=== PATIENT | male | born 1930 | race Caucasian/White ===

== ENCOUNTER 2017-05-24 18:26 | Emergency (ER) | payer OTHER, MEDICARE ==
[~2017-05-24] VITALS: Ht 180.3 cm; Wt 79.4 kg
[~2017-05-24 18:26] MED LIST: ACETAMINOPHEN325 M1 PO; ASPIRIN EC81 M1 PO; ASPIRIN325 PO; CALCIUM CITRAT1 EAC9 PO; CARVEDILOL6.25 MG PO; CENTRUM SILVER1 EAC1 PO; CIPROFLOXACIN500 M1 PO; COLACE100 MG PO; FISH OIL 1,0001 EAC5; FLAGYL500 MG PO; LAXATIVE5 M1 PO; LISINOPRIL10 MG PO; LUTEIN20 MG PO; MOM PO; MORPHINE SULFAT15 M5 PO; NORCO 10-325 T1 EACH PO; ORAMORPH PO; PEPCID AC20 M1; PLAVIX 75 MG TA75 M1 PO; PRESERVISION A1 EAC1 PO; PRESERVISION A1 EAC2 PO; PRILOSEC 20 MG20 MG PO; SYNTHROID175 MCG; SYNTHROID175 MCG PO; SYNTHROID200 MCG PO; TESTIM5 GM TRANSDERM; VITAMIN B-12500 MCG PO; VITAMIN D1000 UNI1 PO; VITAMIN D32000 UNI1 PO; VITAMIN E1000 UNI3 PO; VITAMIN E400 UNIT PO; VITCB500GO PO; ZOFRAN4 MG PO
[2017-05-24] MEDS ORDERED: PEPCID20 MG PO (19:14)
[2017-05-24 19:26] LABS: ABSOLUTE NEUTROPHILS 7.1 thou/uL (1.4-8.2); BASOPHILS 0.5 % (0.0-2.0); EOSINOPHILS 1.4 % (0.0-3.0); HEMATOCRIT 47.8 % (42.0-52.0); HEMOGLOBIN 16.4 gm/dL (14.0-18.0); LYMPHOCYTES 21.1 % (24.0-44.0); MCH 30.8 pg (26.0-34.0); MCHC 34.4 g/dL (28.0-37.0); MCV 89.4 fL (80.0-100.0); MONOCYTES 9.8 % (1.0-8.0); PLATELET COUNT 173 thou/uL (150-400); POLYS 67.2 % (36.0-66.0); RBC 5.34 mil/uL (4.50-6.00); WBC 10.5 thou/uL (4.0-11.0)
[2017-05-24 19:28] LABS: MANUAL DIFF NO
[2017-05-24 19:42] LABS: CALCIUM 9.9 mg/dL (8.5-10.1); CREATININE 1.5 mg/dL (0.7-1.3); POTASSIUM 4.4 mmol/L (3.5-5.1)
[2017-05-24 19:46] LABS: ALBUMIN 4.1 g/dL (3.4-5.0); DIRECT BILIRUBIN 0.2 mg/dL (<0.1-0.3); TOTAL BILIRUBIN 0.9 mg/dL (<0.1-1.0); TOTAL PROTEIN 7.6 g/dL (6.4-8.2)
[2017-05-24 21:10] LABS: URINE BILIRUBIN NEGATIVE (Negative); URINE BLOOD 3+ (Negative); URINE COLOR YELLOW; URINE GLUCOSE-RANDOM* NEGATIVE (Negative); URINE KETONES NEGATIVE (Negative); URINE NITRITE NEGATIVE (Negative); URINE PROTEIN (DIPSTICK) NEGATIVE (Negative); URINE SPECIFIC GRAVITY 1.015 (1.003-1.035); URINE UROBILINOGEN 0.2 E.U./dl (0.2-1.0)
[2017-05-24 21:19] LABS: BACTERIA 1-9 Few /HPF (None Seen); CASTS None Seen /LPF (None Seen); CRYSTALS None Seen /LPF (None Seen); SQUAMOUS 0-3 Few /LPF (0-3); URINE RBC >20 Many /HPF (0-2); URINE WBC None Seen /HPF (0-5)
[2017-05-24 21:50] VITALS: BP 137/57
== END 2017-05-24 21:52 | disposition home or self-care (01) ==
LOC: ER 18:26
PROVIDERS: Emergency Medicine
DX: R33.9 Retention of urine, unspecified (principal); K21.9 Gastro-esophageal reflux disease without esophagitis; E78.00 Pure hypercholesterolemia, unspecified; F10.99 Alcohol use, unspecified with unspecified alcohol-induced disorder; Z90.49 Acquired absence of other specified parts of digestive tract; E03.9 Hypothyroidism, unspecified; M19.90 Unspecified osteoarthritis, unspecified site; Z95.1 Presence of aortocoronary bypass graft; Z98.890 Other specified postprocedural states; Z95.5 Presence of coronary angioplasty implant and graft; Z79.82 Long term (current) use of aspirin

== ENCOUNTER 2017-12-17 12:23 | Inpatient (IN) | payer OTHER, MEDICARE ==
[~2017-12-17] VITALS: Ht 182.9 cm; Wt 79.4 kg
--- NOTE | ~2017-12-17 | EKG ---
[place] [address] [place] [address] ELECTROCARDIOGRAM REPORT Name: ROMAN REYNOLDS Room #: 209-P DIS IN M.R.#: [id number] Admission: 12/17/17 Attend Phys: Leroy Wilks MD Discharge: 12/19/17 Date of : 32 Report #: [id number] THIS REPORT FOR: //name// [facility] Test Date: 2017-12-18 Test Time: 06:00:36 Pat Name: ROMAN REYNOLDS Department: Room: 209 P Gender: M Paper Sealer: IVANNA : 1930 Requested By: Chris Johnston Order Number: [id number] MD: Forerst Quinones Measurements Intervals [place] Rate: 90 P: 46 MT: 164 QRS: -52 QRSD: 129 T: 37 QT: 392 QTc: 480 Interpretive Statements Sinus rhythm Nonspecific IVCD with LAD Inferior infarct, old Compared to ECG 11/17/2013 07:28:04 No significant change was found Electronically Signed On 12-20-2017 7:25:11 TURNING MACHINE OPERATOR HELPER by Forrest Quinones [email or web address] <ELECTRONICALLY SIGNED> By: Forrest Quinones MD, [facility] [phone] Forrest Quinones MD, [facility] /EPI
--- NOTE | ~2017-12-17 | 2DMMODE ---
[facility] [address] [place] [address] 2 D/M-MODE ECHOCARDIOGRAM Name: ROMAN REYNOLDS Room #: 209-P ADM IN M.R.#: [id number] Admission: 12/17/17 Attend Phys: Leroy Wilks, Discharge: Date of : 32 Date of Service: 12/18/17 1239 Report #: [id number] THIS REPORT FOR: //name// APPROVED REPORT Study performed: 12/18/2017 07:48:10 EXAM: Comprehensive 2D, Doppler, and color-flow Echocardiogram Patient Location: Bedside Room #: 209 Status: routine BSA: 2.04 HR: 85 bpm BP: 125/73 mmHg Other Information Study Quality: Adequate Indications CAD Chest Pain 2D Dimensions RVDd: 29.01 mm LVEF(%): 40.58 (>50%) IVSd: 12.65 (7-11mm) LVOT Diam: 23.73 (18-24mm) LVDd: 57.82 mm PWd: 12.30 (7-11mm) Ascending Ao: 37.25 (22-36mm) LVDs: 46.19 (25-40mm) Aortic Root: 35.03 mm IVC: 27.00 mm Bernabe's LVEF: 40.58 % Volumes Left Atrial Volume (Systole) Single Plane 4CH: 56.76 mL Single Plane 2CH: 67.50 mL LA ESV Index: 35.00 mL/m2 Aortic Valve AoV Peak Prabhu.: 2.31 m/s AO Peak Gr.: 14.13 mmHg LVOT Max P.24 mmHg AO Mean Gr.: 10.41 mmHg LVOT Mean P.21 mmHg AO V2 Mean: 1.47 m/s LVOT Max V: 0.81 m/s AO V2 VTI: 40.57 cm LVOT Mean V: 0.48 m/s TYRA (VTI): 1.79 cm2 LVOT V1 VTI: 16.38 cm TYRA Vmax: 1.55 cm2 AI Vmax: 3.96 m/s SV (LVOT): 72.43 mL [facility] [place] [address] 2 D/M-MODE ECHOCARDIOGRAM Name: ROMAN REYNOLDS Room #: 209-P [facility] IN M.R.#: [id number] Admission: 12/17/17 Attend Phys: Leroy Wilks, Discharge: Date of : 32 Date of Service: 12/18/17 1239 Report #: [id number] Elbert: 3.01 m/s2 AI PHT: 382.34 ms Mitral Valve E/A Ratio: 0.4 MV Decel. Time: 170.90 ms MV E Max Prabhu.: 0.46 m/s MV A Prabhu.: 1.19 m/s MV PHT: 49.56 ms IVRT: 173.01 ms Pulmonary Valve PV Peak Prabhu.: 0.80 m/s PV Peak Gr.: 2.55 mmHg Tricuspid Valve TR Peak Prabhu.: 2.34 m/s RAP Estimate: 10.00 mmHg TR Peak Gr.: 21.90 mmHg PA Pressure: 32.00 mmHg Left Ventricle Left ventricle is mildly dilated. There is normal left ventricular wall thickness. Left ventricular systolic function is mildly decreased. LVEF is 40%. Mild diastolic dysfunction is present (impaired relaxation pattern). Right Ventricle The right ventricle is normal size. Right ventricle is hypokinetic. Atria Left atrium is mildly dilated. The right atrium size is normal. Aortic Valve The Aortic valve is calcified. Mild to moderate aortic regurgitation. There is mild valvular aortic stenosis. Calculated aortic valve area is 1.8 cm2 with maximum pressure gradient of 21 mmHg and mean pressure gradient of 10 mmHg. Mitral Valve Moderate mitral annular calcification. Moderate mitral regurgitation. No evidence of mitral valve stenosis. Tricuspid Valve The tricuspid valve is normal in structure. Trace to mild tricuspid regurgitation. PAP is estimated at [address] [place] [address] 2 D/M-MODE ECHOCARDIOGRAM Name: ROMAN REYNOLDS Room #: 209-P ADM IN M.R.#: [id number] Admission: 12/17/17 Attend Phys: Leroy Wilks, Discharge: Date of : 32 Date of Service: 12/18/17 1239 Report #: [id number] Pulmonic Valve Pulmonic valve is not well visualized. Mild pulmonic regurgitation. Great Vessels The aortic root is normal in size. IVC is dilated and collapses >50% with inspiration. Pericardium There is no pericardial effusion. <Conclusion> Left ventricle is mildly dilated. Left ventricular systolic function is mildly decreased. LVEF is 40-45% Mild diastolic dysfunction is present (impaired relaxation pattern). The right ventricle is normal size. Right ventricle is hypokinetic. Left atrium is mildly dilated. The Aortic valve is calcified. Mild to moderate aortic regurgitation. There is mild valvular aortic stenosis. Calculated aortic valve area is 1.8 cm2 with maximum pressure gradient of 21 mmHg and mean pressure gradient of 10 mmHg. Moderate mitral regurgitation. Trace to mild tricuspid regurgitation. PAP is estimated at 31 mmHg. The aortic root is normal in size. IVC is dilated and collapses >50% with inspiration. There is no pericardial effusion. <ELECTRONICALLY SIGNED> By: Chris Johnston MD, FACC 12/18/17 1239 1239 1239 Chris Johnston MD, FACC /INF
--- NOTE | ~2017-12-17 | EKG ---
[place] [address] [place] [address] ELECTROCARDIOGRAM REPORT Name: ERIK REYNOLDSY Room #: 209-P DIS IN M.R.#: [id number] Admission: 12/17/17 Attend Phys: Leroy Wilks MD Discharge: 12/19/17 Date of : 32 Report #: [id number] THIS REPORT FOR: //name// [facility] ED Test Date: 2017-12-17 Test Time: 13:03:01 Pat Name: ROMAN REYNOLDS Department: Room: 209 Gender: M Peoplesoft Analyst: MITA : 1930 Requested By: Tiago Lee Order Number: [id number] MD: Forrest Quinones Measurements Intervals [place] Rate: 95 P: 54 MD: 161 QRS: -49 QRSD: 128 T: 50 QT: 381 QTc: 479 Interpretive Statements Sinus rhythm Probable left atrial enlargement Nonspecific IVCD with LAD Compared to ECG 11/17/2013 07:28:04 No significant change was found Electronically Signed On 12-20-2017 7:14:17 AGRICULTURAL RESEARCH TECHNICIAN by Forrest Quinones [email or web address] <ELECTRONICALLY SIGNED> By: Forrest Quinones MD, [facility] 12/20/17 0714 1303 1303 Forrest Quinones MD, [facility] /EPI
--- NOTE | ~2017-12-17 | HC ---
[facility] [place] [address] CONSULTATION Name: ROMAN REYNOLDS Room #: 209-P [facility] IN M.R.#: [id number] Admission: 12/17/17 Attend Phys: Leroy Wilks MD Discharge: 12/19/17 Date of : 32 Report #: [id number] THIS REPORT FOR: //name// CC: Leroy Wilks DATE OF SERVICE: 12/17/2017 HISTORY OF PRESENT ILLNESS: The patient is an 87-year-old male who we have not seen. He has been seen by Cardiology since his bypass in 1995, down at [facility]. He has had no recent visits or stress testing. He presents to Emergency Room with a 2-day history of fever, weakness, cough, congestion. He had a swab that was negative for the influenza, but admitted and placed on ceftriaxone. He denies any real significant chest pain, but then he admits to some nocturnal chest discomfort for the last week or so. His troponin was trivially elevated and certainly not diagnostic for an ischemic event at 0.16. EKG has some nonspecific changes. I do not have an old one for comparison. Intraventricular conduction delay is noted. He denies any prior infarcts, but had a remote bypass in 1995. He takes minimal medications currently, Prilosec, aspirin, Synthroid and a laxative. No longer on any statin or hypertensive medication, he states. He is pain free and comfortable currently, he states. LABORATORY DATA: White count was 9000. H and H are 15 and 45, platelets 174. UA was unremarkable. Potassium 4.1, creatinine 1.2. BNP 3293. Troponin 0.16. There will be a repeat in the morning. PAST MEDICAL HISTORY: Positive for coronary artery disease; some previous hypertension; he has post-polio syndrome with generalized weakness; he has had cardiac stents since the bypass, but cannot remember when; inguinal hernia repair; EGD with gastric ulcers; hypothyroidism; DJD; reflux; hypercholesterolemia; PSA elevation without prostate cancer; history of remote GI bleed and epidural injections 5 years ago. SOCIAL HISTORY: He is , 2 children. 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 FAMILY HISTORY: Father had bypass surgery early around age 60. REVIEW OF SYSTEMS: Negative except for some occasional nocturia and hesitancy and as stated above. PHYSICAL EXAMINATION: GENERAL: He is pleasant, alert. He does have some vision deficit. He is voicing no complaints. He feels less short of breath than when he was admitted. VITAL SIGNS: Blood pressure 124/74, pulse 80 regular. HEENT: Eyes reveal xanthelasmas. There is arcus senilis. Pharynx is clear. NECK: Shows preserved upstrokes without JVD or bruits. [facility] [address] [place] [address] CONSULTATION Name: ROMAN REYNOLDS Room #: 209-P DIS IN M.R.#: [id number] Admission: 12/17/17 Attend Phys: Leroy Wilks MD Discharge: 12/19/17 Date of : 32 Report #: [id number] LUNGS: Clear. There are few coarse sounds and slight diminished in the right base. Few crackles. CARDIOVASCULAR: Regular rate and rhythm, S1, S2 distant, a significant murmur or gallop. ABDOMEN: Soft. No HSM, abdominal bruit. EXTREMITIES: Reveal trace edema. Distal pulses diminished, but intact. NEUROLOGIC: Nonfocal. SKIN: Warm and dry without xanthoma or ulcer. MUSCULOSKELETAL: Generalized arthritic changes. I did not ambulate him. ASSESSMENT: 1. Chest pain, shortness of breath. It appears to be a right middle lobe infiltrate/bronchitis pneumonia. 2. Elevated troponin of 0.16 is not clinically significant for an ischemic event in the setting and his age. 3. History of hypertension. 4. History of hypercholesterolemia. 5. Benign prostatic hypertrophy. RECOMMENDATIONS AND PLAN: Obviously, I do agree with IV antibiotics. I will repeat a troponin, EKG in the morning. May check an echo Doppler just to assess where we are with LV function, although I do not see any overt heart failure here. The only concern is a nocturnal chest discomfort, which has been occurring for the last week or two. He is still hospitalized, would consider nuclear stress testing, possibly Wednesday a.m. Seems to be very viable and alert and independent, not looking for, barring significant abnormality on the stress test, pharmacological Lexiscan, I would not proceed with any intervention. He is in the CCU. Thank you for asking me to assist in the care of this patient. <ELECTRONICALLY SIGNED> By: Chris Johnston MD, FACC 01/03/18 1427 21 2259 Chris Johnston MD, FACC /nt
[~2017-12-17 12:23] MED LIST changes: +PEPCID20 MG PO
[2017-12-17 12:26] VITALS: BP 114/65
[2017-12-17 13:12] LABS: ABSOLUTE NEUTROPHILS 6.9 thou/uL (1.4-8.2); BASOPHILS 0.3 % (0.0-2.0); EOSINOPHILS 0.7 % (0.0-3.0); HEMOGLOBIN 15.4 gm/dL (14.0-18.0); LYMPHOCYTES 14.8 % (24.0-44.0); MCH 30.9 pg (26.0-34.0); MCHC 34.1 g/dL (28.0-37.0); MCV 90.5 fL (80.0-100.0); MONOCYTES 7.3 % (1.0-8.0); PLATELET COUNT 174 thou/uL (150-400); POLYS 76.9 % (36.0-66.0); RBC 4.98 mil/uL (4.50-6.00); RDW 13.8 % (10.5-14.5)
[2017-12-17] MEDS ORDERED: OCUVITE EYE +1 EACH PO (13:16)
[2017-12-17 13:31] LABS: CALCIUM 9.3 mg/dL (8.5-10.1); CREATININE 1.2 mg/dL (0.7-1.3); POTASSIUM 4.1 mmol/L (3.5-5.1)
[2017-12-17 13:36] LABS: ALBUMIN 3.5 g/dL (3.4-5.0); TOTAL PROTEIN 7.1 g/dL (6.4-8.2); TROPONIN-I 0.16 ng/mL (<0.06)
[2017-12-17 13:54] LABS: URINE BILIRUBIN NEGATIVE (Negative); URINE BLOOD TRACE (Negative); URINE CLARITY CLEAR; URINE COLOR YELLOW; URINE GLUCOSE-RANDOM* NEGATIVE (Negative); URINE KETONES NEGATIVE (Negative); URINE LEUKOCYTES 3+ (Negative); URINE NITRITE NEGATIVE (Negative); URINE PROTEIN (DIPSTICK) NEGATIVE (Negative); URINE UROBILINOGEN 0.2 E.U./dl (0.2-1.0)
[2017-12-17 14:03] LABS: SQUAMOUS None Seen /LPF (0-3); URINE RBC 0-2 Rare /HPF (0-2); URINE WBC >25 Many /HPF (0-5)
[2017-12-17 14:04] LABS: CASTS None Seen /LPF (None Seen); CRYSTALS None Seen /LPF (None Seen); YEAST Present (None Seen)
[2017-12-17 14:31] VITALS: BP 126/68
[2017-12-17 14:47] VITALS: BP 129/70
[2017-12-17 15:12] VITALS: BP 122/79
[2017-12-17 19:26] VITALS: BP 125/73
[2017-12-18 06:45] LABS: HEMATOCRIT 43.1 % (42.0-52.0); HEMOGLOBIN 14.9 gm/dL (14.0-18.0); MCH 30.8 pg (26.0-34.0); MCHC 34.5 g/dL (28.0-37.0); MCV 89.3 fL (80.0-100.0); RBC 4.83 mil/uL (4.50-6.00); WBC 7.7 thou/uL (4.0-11.0)
[2017-12-18 06:56] LABS: CALCIUM 8.6 mg/dL (8.5-10.1); POTASSIUM 3.9 mmol/L (3.5-5.1)
[2017-12-18 07:33] LABS: CHOLESTEROL 145 mg/dL (<200); HDL CHOLESTEROL 54 mg/dL (>40); LDL CHOLESTEROL 81 mg/dL (<100); TC:HDL 2.7 Ratio (Not establshd); TRIGLYCERIDE 54 mg/dL (<150); VLDL 11 mg/dL (<40)
[2017-12-18 08:00] VITALS: BP 146/81
[2017-12-18 11:16] VITALS: BP 111/71
[2017-12-18 15:52] VITALS: BP 138/78
[2017-12-18 20:22] VITALS: BP 128/84
[2017-12-19 05:30] VITALS: BP 134/91
[2017-12-19] MEDS ORDERED: CEFDINIR300 MG PO (08:01)
[2017-12-19 11:09] VITALS: BP 134/91
== END 2017-12-19 12:00 | disposition home or self-care (01) | DRG 194 ==
LOC: ER 12:23 → EROBS 13:45 → 2N 14:48
PROVIDERS: Family Medicine; Physician Assistant
DX: J18.9 Pneumonia, unspecified organism (principal); N39.0 Urinary tract infection, site not specified; E78.00 Pure hypercholesterolemia, unspecified; K21.9 Gastro-esophageal reflux disease without esophagitis; E03.9 Hypothyroidism, unspecified; M19.90 Unspecified osteoarthritis, unspecified site; N40.0 Benign prostatic hyperplasia without lower urinary tract symptoms; J40 Bronchitis, not specified as acute or chronic; I25.10 Atherosclerotic heart disease of native coronary artery without angina pectoris; E78.5 Hyperlipidemia, unspecified; I10 Essential (primary) hypertension; Z87.891 Personal history of nicotine dependence; Z95.1 Presence of aortocoronary bypass graft; Z95.5 Presence of coronary angioplasty implant and graft; Z86.12 Personal history of poliomyelitis; Z90.49 Acquired absence of other specified parts of digestive tract; Z79.82 Long term (current) use of aspirin; Z79.899 Other long term (current) drug therapy
CPT/HCPCS: 10194

== ENCOUNTER → 2017-12-23 | Outpatient (CLI) | payer OTHER, MEDICARE ==
[~2017-12-23] MED LIST changes: +CEFDINIR300 MG PO; +OCUVITE EYE +1 EACH PO
== END ==
LOC: RAD 12:46
DX: J18.9 Pneumonia, unspecified organism (principal)

== ENCOUNTER 2019-07-11 08:51 | Inpatient (IN) | payer OTHER, MEDICARE ==
[~2019-07-11] VITALS: Ht 188 cm; Wt 81.6 kg
[2019-07-11 08:54] VITALS: BP 100/67
[2019-07-11 09:13] LABS: ABSOLUTE NEUTROPHILS 6.9 thou/uL (1.4-8.2); BASOPHILS 0.6 % (0.0-2.0); EOSINOPHILS 1.2 % (0.0-3.0); HEMATOCRIT 43.1 % (42.0-52.0); HEMOGLOBIN 14.4 gm/dL (14.0-18.0); LYMPHOCYTES 14.9 % (24.0-44.0); MCH 30.2 pg (26.0-34.0); MCHC 33.5 g/dL (28.0-37.0); MCV 90.3 fL (80.0-100.0); MONOCYTES 9.7 % (1.0-8.0); PLATELET COUNT 198 thou/uL (150-400); POLYS 73.6 % (36.0-66.0); RBC 4.77 mil/uL (4.50-6.00); RDW 14.5 % (10.5-14.5); WBC 9.4 thou/uL (4.0-11.0)
--- NOTE | 2019-07-11 09:25 | EKG ---
[address] [place] [address] ELECTROCARDIOGRAM REPORT Name: ROMAN REYNOLDS Room #: PRE M.RCarolynn#: [id number] Admission: Attend Phys: Discharge: Date of : 32 Report #: [id number] THIS REPORT FOR: //name// [facility] ED Test Date: 2019-07-11 Test Time: 08:54:12 Pat Name: ROMAN REYNOLDS Department: Room: Gender: M Billet Bed Operator: cw : 1930 Requested By: Fabiano King Order Number: [id number] MD: Philipp Smith Measurements Intervals [place] Rate: 129 P: CT: QRS: -91 QRSD: 153 T: 72 QT: 394 QTc: 578 Interpretive Statements Wide complex tachycardia. Electronically Signed On 07-11-2019 9:24:59 CDT by Philipp Smith [email or web address] <ELECTRONICALLY SIGNED> By: Philipp Smith MD 07/11/19 0924 0854 0854 Philipp Smith MD /EPI
[2019-07-11 09:26] LABS: CALCIUM 9.9 mg/dL (8.5-10.1); CREATININE 1.3 mg/dL (0.7-1.3); POTASSIUM 4.6 mmol/L (3.5-5.1)
[2019-07-11 09:36] LABS: ALBUMIN 3.4 g/dL (3.4-5.0); TROPONIN-I 0.12 ng/mL (<0.06)
[2019-07-11 10:05] VITALS: BP 97/67
[2019-07-11 11:08] VITALS: BP 99/66
[2019-07-11 11:30] VITALS: BP 92/61
--- NOTE | 2019-07-11 15:30 | 2DMMODE ---
[facility] [address] [place] [address] 2 D/M-MODE ECHOCARDIOGRAM Name: ROMAN REYNOLDS Room #: 213-P ADM IN .R.#: [id number] Admission: 07/11/19 Attend Phys: Leroy Wilks, Discharge: Date of : 32 Date of Service: 07/11/19 1529 Report #: [id number] THIS REPORT FOR: //name// APPROVED REPORT Study performed: 07/11/2019 13:58:45 EXAM: Comprehensive 2D, Doppler, and color-flow Echocardiogram Patient Location: Bedside Room #: 213 Status: routine BSA: 2.05 HR: 90 bpm BP: 92/61 mmHg Rhythm: NSR Other Information Study Quality: Adequate Risk Factors: Cardiac Risk Factors: HTN, Hyperlipidemia Indications Aortic Valve Disease CAD Cardiomyopathy CABG 2D Dimensions IVSd: 11.91 (7-11mm) LVOT Diam: 23.00 (18-24mm) LVDd: 62.17 mm PWd: 10.55 (7-11mm) Ascending Ao: 37.32 (22-36mm) LVDs: 55.63 (25-40mm) Aortic Root: 36.70 mm LV Single Plane 4CH: 19.72 % LV Single Plane 2CH: 18.40 % Volumes Left Atrial Volume (Systole) Single Plane 4CH: 77.71 mL Single Plane 2CH: 83.11 mL LA ESV Index: 46.00 mL/m2 Aortic Valve AoV Peak Prabhu.: 1.94 m/s AO Peak Gr.: 15.05 mmHg LVOT Max P.46 mmHg [facility] [address] [place] [address] 2 D/M-MODE ECHOCARDIOGRAM Name: ROMAN REYNOLDS Room #: 213-P [facility] IN ..#: [id number] Admission: 07/11/19 Attend Phys: Leroy Wilks, Discharge: Date of : 32 Date of Service: 07/11/19 1529 Report #: [id number] Mean Gr.: 8.12 mmHg LVOT Mean P.24 mmHg AO V2 Mean: 1.36 m/s LVOT Max V: 0.78 m/s AO V2 VTI: 34.01 cm LVOT Mean V: 0.51 m/s TYRA (VTI): 1.47 cm2 LVOT V1 VTI: 12.09 cm TYRA Vmax: 1.67 cm2 SV (LVOT): 49.83 mL Mitral Valve E/A Ratio: 1.3 MV Decel. Time: 147.77 ms MV E Max Prabhu.: 1.07 m/s MV A Prabhu.: 0.81 m/s MV PHT: 42.85 ms IVRT: 79.58 ms TDI E/Lateral E': 17.83 E/Medial E': 35.67 Medial E' Prabhu.: 0.03 m/s Lateral E' Prabhu.: 0.06 m/s Pulmonary Valve PV Peak Prabhu.: 0.81 m/s PV Peak Gr.: 2.62 mmHg NH End Vmax: 1.73 m/s Pulmonary Vein P Vein S: 0.43 m/s P Vein D: 0.71 m/s P Vein S/D Ratio: 0.61 Tricuspid Valve TR Peak Prabhu.: 3.11 m/s TR Peak Gr.: 38.76 mmHg Left Ventricle Left ventricle is dilated. There is global hypokinesis of the left ventricle. Borderline concentric left ventricular hypertrophy. Left ventricular systolic function is severely decreased. LVEF is 25%. Severe diastolic dysfunction is present (restrictive filling). Right Ventricle Right ventricle is dilated. Right ventricle is hypokinetic. Atria Left atrium is moderately dilated. Right atrium is mildly dilated. [facility] [address] [place] [address] 2 D/M-MODE ECHOCARDIOGRAM Name: ROMAN REYNOLDS Room #: 213-P [facility] IN [facility]#: [id number] Admission: 07/11/19 Attend Phys: Leroy Wilks, Discharge: Date of : 32 Date of Service: 07/11/19 1529 Report #: [id number] Aortic Valve Aortic valve is moderately calcified, mildly stenotic Mild aortic regurgitation. The maximum pressure gradient is 15 mmHg and the mean pressure gradient is 8 mmHg. The calculated aortic valve area is 1.8 cm2. Mild aortic stenosis. Mitral Valve Moderate mitral annular calcification. Moderate to moderately severe mitral regurgitation. No evidence of mitral valve stenosis. Tricuspid Valve The tricuspid valve is normal in structure. Moderate tricuspid regurgitation.The tricuspid regurgitant jet measures 40 mmHg. Pulmonic Valve Mild pulmonic regurgitation. Great Vessels The aortic root is normal in size. The ascending aorta is normal in size. IVC is not visualized due to temporary pacer. Pericardium There is no pericardial effusion. <Conclusion> Left ventricular systolic function is severely decreased. LVEF is 25%. Severe diastolic dysfunction is present (restrictive filling). Left atrium is moderately dilated. Aortic valve is moderately calcified, mild-moderately stenotic. Mild insufficiency The maximum pressure gradient is 15 mmHg and the mean pressure gradient is 8 mmHg. The calculated aortic valve area is 1.8 cm2. Mild aortic stenosis. Moderate mitral annular calcification. Moderate to moderately severe mitral regurgitation. Moderate tricuspid regurgitation. Pulmonary artery pressure of 40 mmHg. There is no pericardial effusion. <ELECTRONICALLY SIGNED> By: Forrest Quinones MD, FACC 07/11/19 1529 1529 1529 Forrest Quinones MD, FACC /INF
--- NOTE | 2019-07-11 16:02 | EKG ---
[address] [place] [address] ELECTROCARDIOGRAM REPORT Name: ROMAN REYNOLDS Room #: 213-P ADM IN M.R.#: [id number] Admission: 07/11/19 Attend Phys: Leroy Wilks MD Discharge: Date of : 32 Report #: [id number] THIS REPORT FOR: //name// [facility] ED Test Date: 2019-07-11 Test Time: 11:03:24 Pat Name: ROMAN REYNOLDS Department: Room: 213 Gender: M Supervisor Channel Process: : 1930 Requested By: Fabiano King Order Number: [id number] MD: Philipp Smith Measurements Intervals [place] Rate: 83 P: 35 AL: 192 QRS: -32 QRSD: 130 T: 41 QT: 424 QTc: 499 Interpretive Statements Sinus rhythm post adenosine with termination of WCT Electronically Signed On 07-11-2019 16:02:05 CDT by Philipp Smith [email or web address] <ELECTRONICALLY SIGNED> By: Philipp Smith MD 07/11/19 1602 1103 1103 Philipp Smith MD /ARLINE
[2019-07-11 16:34] VITALS: BP 111/72
--- NOTE | 2019-07-11 18:28 | NUR ---
ASSUMED CARE OF PT AT APPROX 1200. PT IS ALERT AND ORIENTED X4, MONITORED ON TELE AND ABLE TO MAINTAIN 02 SAT >90 ON 2L NC. DENIES PAIN. PT IS VERY UPSET ABOUT RECENT LOSS OF . PAGED SPIRITUAL CARE, WHO CAME AND VISITED WITH PATIENT FOR QUITE A WHILE. PT STATING THAT HE IS ECPERIENCING ANXIETY AND WOULD LIKE SOMETHING TO HELP. RECEIVED ORDER FOR ANXIETY MEDICATION AND ADMINISTERED. AMIODARONE GTT CURRENTLY HANGING. VSS. WILL CONTINUE TO MONITOR PT.
[2019-07-11 19:49] VITALS: BP 109/75
[2019-07-11] MEDS ORDERED: ALLERGY 4-HOUR4 MG PO (20:23)
[2019-07-12] VITALS: BP 125/84
[2019-07-12] MEDS ORDERED: FLOMAX0.4 MG PO (03:30)
--- NOTE | 2019-07-12 03:47 | NUR ---
ASSESSMENT CHARTED. VSS. PT DENIES CP, N/V, DIZZINESS. C/O CHEST CONGESTION AND TIGHTNESS, CAAL NOTFIED LEFT MESSAGE FOR CALL BACK. RECIEVED CALL BACK THIS AM RESTART HOME MEDS AND ALB RT TREATMENTS ADDED PER EMAR. PT UNABLE TO SLEEP COMFORTABLY IN BED SLEPT IN CHAIR ALARMS ON. BRIEFS PT REQUEST VOIDS PER URINAL. AMIODARONE GTT PER EMAR. SLEEPT INTTRUPTED ON AND OFF THROUGHOUT NIGHT PT SAD ABOUT RECENT WIFES . WILL CONTINUE TO MONITOR AND WITH POC.
[2019-07-12 05:45] VITALS: BP 96/78
[2019-07-12 08:58] VITALS: BP 121/81
[2019-07-12 12:02] VITALS: BP 132/91
--- NOTE | 2019-07-12 14:12 | NUR ---
Met with patient and sp with caregiver Judit [phone]. Patient resides at home alone. He uses a walker for ambulation and all needs on one level in home he does not drive. recently at [facility] . Cargiver 4 hours a day 5 days a week but she will be cutting back to 3 hours a day 3 days a week. Judit has her own [employer] so she will likely be adding staff to accomadate patient. He does not use 02 at home currently on 4 liters. He is post polio and Judit reports he is numb in extementies and falls often. She has been trying to convince patient of lifeline services and considering assisted living. She reports patient set in his ways. Therapy evals in process. Patient has son who visited earlier today.
--- NOTE | 2019-07-12 16:45 | NUR ---
PT CARE ASSUMED APPROX 0700. PT ALERT AND ORIENTED 2-3. CONFUSED IN CONVERSATION INTERMITTENTLY AND FREQUENTLY FORGETFUL. DENIES PAIN AND SOA. VSS. TRANSFERS WITH MOD ASSIST AND [facility]. PT HAS NOT AMBULATED TODAY. UP TO CHAIR X2. REQUESTS TO RETURN TO BED ALMOST IMMEDIATELY AFTER GETTING TO CHAIR. PT AND FAMILY EDUCATED ON NEED FOR MOBILIZING. STATES UNDERSTANDING. PT TOLERATING POC. CLINICAL UPDATES GIVEN TO PT AND FAMILY THIS SHIFT. BOTH DENY QUESTIONS AND CONCERNS REGARDING POC. AMIO GTT SHUT OFF PER CARDIOLOGY APPLICATION TECHNICAL DESIGNER VERBAL ORDER AND NOTE. SHE DID NOT ORDER TO DISCONTINUE. REMAINS TO MAR BUT NOT RUNNING OF APPROX 0900. CONDOM CATH PLACED WITHOUT ISSUE AND REMAINS C/D/I AT THIS TIME. NO DISTRESS NOTED AT THIS TIME.
[2019-07-12 16:48] VITALS: BP 106/89
[2019-07-12 20:08] VITALS: BP 103/63
[2019-07-13 04:09] VITALS: BP 117/68
--- NOTE | 2019-07-13 07:22 | NUR ---
ASSESSMENT DOCUMENTED.PT BEEN RESTING IN BED.PLEASANTLY CONFUSED.PT MOVED FROM 213 TO 216 D/T ATTEMPTING TO GET OUT OF BED UNASSISTED SEVERAL TIMES.A/OX3 WITH CONFUSION,FORGETFUL,VERY ANXIOUS.ON O2 AT 2LITERS PNC,NO RESP DISTRESS NOTED.PT NOTED TO HAVE DIFFICULTIES SWALLOWING THIN LIQUIDS.BEDSIDE SWALLOW TEST COMPLETED,WILL CONSULT SPEECH THERAPY FOR EVALUATION AND RECOMMENDATION.WILL CONT TO MONITOR PER POC.
[2019-07-13 08:23] VITALS: BP 106/63
[2019-07-13] MEDS ORDERED: ASPIR 8181 MG PO (14:43)
[2019-07-13] MEDS ORDERED: CARVEDILOL3.125 MG PO (14:43)
[2019-07-13] MEDS ORDERED: CEFDINIR300 MG PO (14:46)
--- NOTE | 2019-07-13 16:44 | NUR ---
Therapy evals and 5n consult pending. Pt is agreeable if approved. He feels he is weak and could benefit before returning home. He is working with his private duty provider to try and increase his coverage to 7 days a week 3-5 hours. Care team updated.
[2019-07-13 16:55] VITALS: BP 96/58
--- NOTE | 2019-07-13 18:34 | NUR ---
ASSUMED CARE OF THE PATIENT AT 0700. ASSESSMENTS COMPLETED. PATIENT IS VERY ANXIOUS AND STATED, "I CAN'T BREATHE" MULTIPLE TIMES TODAY. HE WAS REASSURED EACH TIME WITH CHECKIN HIS PULSE OXYGENATION, LISTENING TO HIS LUNGS AND GIVING HIS XANAX WHEN APPROPRIATE. PATIENT IS MORE COMFORTABLE IN THE LATE AFTERNOON AND EVENING. PATIENT HAD SPEECH THERAPY EVAL TODAY AND ACCEPTING THICKENED LIQUIDS WELL. HE HAS NOT HAD ANY COUGHING WITH THICKNED LIQUIDS TODAY. PATIENT SCHEDULED FOR VIDEO SWALLOW TOMORROW. HYPERBARIC WELDER DIVER FROM 5N CAME AND SAW PATIENT TODAY FOR EVALUATION. PATIENT TO CONTINUE WITH POC.
[2019-07-13 19:36] VITALS: BP 99/66
--- NOTE | 2019-07-14 03:29 | NUR ---
PT HAVING CONSISTENT COUGH THAT IS NOT RELIEVED BY NEB TX.XRAY WAS ORDERED WITH COUGH MEDS THAT GIVES PT SOME RELIEF.DR CAAL CONTACTED AWAITING CALL BACK.ASSESSMENT COMPLETED PER ORDERS.AWAITING XRAY RESULTS.
[2019-07-14 04:45] VITALS: BP 113/63
[2019-07-14 07:50] VITALS: BP 114/78
[2019-07-14 08:51] VITALS: BP 114/78
--- NOTE | 2019-07-14 09:52 | NUR ---
PT ACCEPTED FOR [facility] ACUTE REHAB STAY. DC TO 5N TODAY. ALL PARTIES UPDATED.
--- NOTE | 2019-07-14 17:39 | NUR ---
ASSUMMED PT CARE AT APPROXIMATELY 0700. PT A&O X2- TO SELF AND PLACE. FALL PRECAUTIONS IN PLACE. BROTHER AND CAREGIVER AT BEDSIDE. ASSESSMENT CHARTED. PT DENIED HAVING CHEST PAIN. PT DENIED HAVING ACUTE PAIN. PT STATED HE WAS SOB-ANXIETY RELATED. PT'S O2 SAT WAS STABLE. PT RECIEVED PRN ANXIETY MEDICATION. PT STATED HIS ANXIETY, SOB, AND RESTLESSNESS DC AFTER MEDICATION. PT'S VITAL SIGNS STABLE. PT GOT UP TO COMMODE ASSIST X2. PT'S LOWER EXTREMITIES ARE WEAK/UNSTEADY GAIT. PT'S CAREGIVER AND BROTHER WERE EDUCATED ABOUT PT'S STATUS. CAREGIVER AND BROTHER STATED THEY UNDERSTOOD THE INFORMATION AND DENIED HAVING FURTHER QUESTIONS. PT RECIEVED A VIDEO SWALLOW STUDY TODAY. PT DC OFF OF NECTAR THICK DIET TO HEART HEALTHY/ MECHANICAL SOFT DIET. PT IS CONFUSED AND IS FORGETFULL. FREQUENTLY ORIENTING PT. ENCOURAGING PT TO EAT AND DRINK. PT DISCHARGING OFF FLOOR TO 5N FOR REHAB. TELE PACK REMOVED. DISCHARGE PAPER WORK TRANSFERRED UP TO FLOOR WITH PT. HOSPITAL TRANSPORT TOOK PT UP TO 5N. [facility]. REPORT GIVEN TO RN ON 5N. RN DENIES FURTHER QUESTIONS REGARDING REPORT.
== END 2019-07-14 15:29 | DRG 178 ==
LOC: ER 08:51 → 2N 09:59 → EROBS 09:59 → 2N 11:25 → ENTRNSPT 07-14 15:12 → EDTRNSPTSTS 07-14 15:14 → 2N 07-14 15:19
PROVIDERS: Emergency Medicine; ADMIT Family Medicine
DX: J69.0 Pneumonitis due to inhalation of food and vomit (principal); I47.1 Supraventricular tachycardia; I48.92 Unspecified atrial flutter; K21.9 Gastro-esophageal reflux disease without esophagitis; E78.00 Pure hypercholesterolemia, unspecified; G14 Postpolio syndrome; E03.9 Hypothyroidism, unspecified; M19.90 Unspecified osteoarthritis, unspecified site; I25.10 Atherosclerotic heart disease of native coronary artery without angina pectoris; E78.5 Hyperlipidemia, unspecified; I25.5 Ischemic cardiomyopathy; I95.9 Hypotension, unspecified; I35.0 Nonrheumatic aortic (valve) stenosis; Z60.2 Problems related to living alone; Z95.1 Presence of aortocoronary bypass graft; Z95.5 Presence of coronary angioplasty implant and graft; Z90.49 Acquired absence of other specified parts of digestive tract; Z82.49 Family history of ischemic heart disease and other diseases of the circulatory system; Z79.82 Long term (current) use of aspirin; Z79.899 Other long term (current) drug therapy
CPT/HCPCS: 10081

== ENCOUNTER 2019-07-14 11:41 | Inpatient (IN) | payer OTHER, MEDICARE ==
[~2019-07-14] VITALS: Ht 182.9 cm; Wt 79.5 kg
[~2019-07-14 11:41] MED LIST changes: +ALLERGY 4-HOUR4 MG PO; +ASPIR 8181 MG PO; +CARVEDILOL3.125 MG PO; +FLOMAX0.4 MG PO
--- NOTE | 2019-07-14 15:29 | NUR ---
chart review, cm went to ccu and pt and cg iris where on their way up to acute rehab. cm intro to dcp, transition of care, home health, private duty and team meeting. pt able to communicate verbally. noted pt on o2 at 2 L/nc, he reported " not on oxygen at home"/joshua. took 2 person to stand pivot from wheel chair to edge of bed, " oh yes it takes 2 person cause of his polio for transfer, he will need some more pd because he will only have 3 hr 3 x week with me, he going to need more than that"/iris. pt stated " live at home, manage own medication, walker, only use main level of home, don't drive, son naresh, pcp matthew"/joshua. will cont following as needed for dc needs. healthcare translator stated " he will be clear as day when doesn't have to take xanax"/iris. will cont following as needed for dc needs.
[2019-07-14 16:58] VITALS: BP 111/68
[2019-07-14 20:01] VITALS: BP 117/72
--- NOTE | 2019-07-14 21:15 | NUR ---
ASSUMED CARE OF PT AT 1530 WHEN PT ARRIVED ON UNIT. REPORT RECEIVED BY NURSE ON 2N. PT ASSISTED IN BED WITH 2 PERSON PIVOT TRANSFER WITH GAIT BELT. PT ON 3 L O2 VIA NC, ADMISSION ASSESSMENT, VITALS, WEIGHT, AND EDUCATION COMPLETED. ADMISISON CONSENTS SIGNED AND PLACED IN CHART. CONSULTS CALLED. PT IS ALERT AND ORIENTED TO PERSON AND PLACE. REQUIRES FREQUENT REORIENTATION, FALLING ASLEEP FOR SHORT PERIODS OF TIME (APPROXIMATELY 10-20 SECONDS) EVERY FEW MINUTES, HR IRREGULAR, THROUGHOUT THE REMAINDER OF SHIFT PT BECAME RESTLESS, AGITATED, AND IMPULSIVE. MULTIPLE ATTEMPTS TO GET OUT OF BED, BED ALARM SET TO MOST SENSITIVE SETTING. FALL PRECAUTIONS IN PLACE AND NURSING WILL CONTINUE TO MONITOR.
--- NOTE | 2019-07-14 23:25 | NUR ---
ASSUMED CARE OF THE PT AT 1914 PM. ALERT ET ORIENTED X 2. THE PT HAS 02 ON AT 2L PER N.C. HEART RATE IRREGULAR. LUNGS DIM. BILATERALLY, RESP., EVEN, AND UNLABOREDL +BS HEARD IN ALL 4 QUADRANTS. ABD SOFT ET NONTENDOR. +PP BILATERALLY. TWO IV SITES WITHOUT ANY REDNESS OR SWELLING. CALL LIGHT WITHIN REACH.
[2019-07-15 04:37] LABS: HEMATOCRIT 44.6 % (42.0-52.0); HEMOGLOBIN 14.6 gm/dL (14.0-18.0); MCH 30.9 pg (26.0-34.0); MCHC 32.6 g/dL (28.0-37.0); MCV 94.7 fL (80.0-100.0); RBC 4.71 mil/uL (4.50-6.00); RDW 14.9 % (10.5-14.5)
[2019-07-15 04:43] LABS: CALCIUM 8.8 mg/dL (8.5-10.1)
[2019-07-15 04:45] LABS: POTASSIUM 4.5 mmol/L (3.5-5.1)
[2019-07-15 08:45] VITALS: BP 104/68
--- NOTE | 2019-07-15 17:51 | NUR ---
ASSUMED CARE OF PT AT 0715. PT IS ALERT, ORIENTED TO PERSON AND PLACE, FREQUENTLY FALLS ASLEEP DURING TASKS, PERIODS OF INCREASED AGITATION, IMPULSIVITY AND CONFUSSION. PT REQUIRED PO ANXIETY MEDS TO MANAGE ANXIETY. REQUIRES FREQUENT CHECKS BY NURSING STAFF. PT ON 2L O2 VIA NC TO MAINTAIN O2 >90%. CAREGIVER VISITED THIS SHIFT AND BROUGHT CLOTHING FOR PT. PT PARTICIPATED IN SCHEDULED THERAPIES. PER SPEECH THERAPY PT IS TO BE FULLY SUPERVISED AND ASSISTED WITH ALL MEALS. PT NEEDS TO BE REMINDED TO TAKE DRY SWALLOWS AFTER EACH SWALLOW. NURSING TO CONTINUE TO MONITOR FOR ASPIRATION RISK. FALL PRECAUTIONS IN PLACE AND NURSING WILL CONTINUE TO MONITOR.
[2019-07-15 20:08] VITALS: BP 101/71
--- NOTE | 2019-07-15 21:52 | NUR ---
NOTIFIED BY STAFF THAT PT IS UNHAPPY AND WOULD LIKE TO LEAVE AMA. EXPLAINED TO PT THAT HE IS ABLE TO LEAVE WHENEVER HE WOULD LIKE. PT'S FAMILY CONCERNED WITH BEING ABLE TO CARE FOR HIM AT HOME. BOTH PT AND ADVISORY SOFTWARE ENGINEER ENCOURAGING PT AND OFFERING EMOTIONAL SUPPORT RE: HIS CONTINUED THERAPIES AND HOW WELL HE IS PROGRESSING. EXPLAINED TO PT THAT HE CAN DIAL "0" AND REACH THE ADVISORY SOFTWARE ENGINEER ANYTIME. FAMILY HAS NO FURTHER CONERNS/QUESTIONS RE: PT'S POC AND WISH FOR HIM TO STAY IN THE HOSPITAL.
--- NOTE | 2019-07-16 03:27 | NUR ---
PT RESTLESS AND CONFUSED. EXAM SHOWED LOOSE CONGESTION, WITH PT COUGHING. TOOK HS MEDS CRUSHED WITH APPLESAUCE. SLEPT INTERMITTANTLY, BUT REMAINED RESTLESS AND ATTENTION SEEKING. NEEDED TO BE READJUSTED IN BED SEVERAL TIMES, AND WAS INCONTINENT OF URINE AND SMALL AMT STOOL X1. PERIODICALLY CALLING OUT FOR HELP, AND REPEATEDLY WANTING TO GET OUT OF BED. NEEDED TO BE REMINDED HE IS CURRENTLY ON BEDREST. XANAX 0.25 GIVEN PO AT 0130 FOR ANXIETY AND RESTLESSNESS. ONLY HELPED A LITTLE. SLEPT INTERMITANTLY.
[2019-07-16 10:41] VITALS: BP 109/68
[2019-07-16 19:44] VITALS: BP 115/74
--- NOTE | 2019-07-16 20:06 | NUR ---
ASSUMED CARE OF PT AT 0715. PT IS A&OX1-2, IMPULSIVE, AGGITATED, RESTLESS, AND INAPPROPRATE TO STAFF BY USING INAPPROPRATE LANGUAGE. PT REQUIRES FREQUENT MONITORING FOR SAFETY, REORRIENTED SEVERAL TIMES EACH HOUR, HALLUCINATED ABOUT COOKIES IN HIS BED THIS AFTERNOON, ATTEMPTS TO CRAWL OUT OF THE BED, MADE FREQUENT PHONE CALLS FROM ROOM PHONE TO RANDOM NUMBERS. PT FELL ASLEEP DURING TASKS THROUGHOUT SHIFT. UNABLE TO PARTICIPATE IN CARES OR REHAB ACTIVITIES THIS SHIFT. SON VISITED THIS AFTERNOON AND REPORTS THAT HE IS IN THE PROCESS OF OBTAINING COPIES OF ADVACED DIRECTIVES AND DPOA. PT UP FOR ALL MEALS AND ASSISTED WITH FEEDING BY NURSE. PT UNABLE TO TOLERATE SWALLOWING STRATAGIES AND WAS VISABLY UPSET ABOUT USE OF PROVALE CUP FOR SAFETY. FREQUENT EPISODES OF WET COUGH/VOICE, TEARS AND FREQUENT SWALLOWING. PT LEFT SITTING UP FOR 30 MINUTES AFTER EACH MEAL AT NURSING STATION. LUNG SOUNDS DIMMINISHED IN ALL LOBES BILATERALLY. FALL PRECAUTIONS IN PLACE AND NURSING WILL CONTINUE TO MONITOR.
--- NOTE | 2019-07-17 02:57 | NUR ---
ASSUMED CARE AT FROM DAY SHIFT PT ALERT TO SELF AND SITUATION BUT IS AGITATED AND PULLING OFF GOWN PT STATES IM JUST RESTLESS, DISCUSSED PLAN OF CARE PT AGREEABLE , BUT PT YELLING OUT AND ATTEMPTING TO CLIMB OUT OF BED, CINDER WORKER NOTIFED ORDER RECIEVED FOR HALDOL . AFTER ONE HOUR PT STATED TO REST AND FALL ASLEEP, WILL CONTINUE TO MONITOR [place]OSLEY.PO MEDICATION TAKEN WELL AFTER CRUSHED AND PLACED IN APPLE SAUCE, BED ALARM ON FOR SAFETY, WILL REPORT CHANGES OR ABNORMAL FINDINGS.
--- NOTE | 2019-07-17 08:05 | NUR ---
ASSUME PT CARE AT 0700. VSS ON 2L OF OXYGEN. SAT 97% ON 2L HAD BREATHING TX. RECEIVED REPORT FROM NIGHT NURSE THAT PT WAS RESTLESS ALL NIGHT. IM HALDOL GIVEN ONE TIME. DIDN'T GO TO SLEEP UNTIL 4AM. HAD SMALL SOFT BM TODAY. CONTINUE TO BE ON CEFDINIR FOR PNEUMONIA. MAY ASK FOR PROBIOTIC TO PREVENT CDIFF. PT HAS RED AREA TO COCCYX RIGHT BUTTOCK HAS SMALL OPEN 0.5CM X 0.5CEMPT TURNED Q2 HOURS, BARRIER CREAM APPLIED TO THE AREA, LOW AIR LOSS MATTRESS ORDERED, WOUND CONSULT PLACED. OFFERED SUPPORTIVE CARE. MORNING MEDS GIVEN. DR. BOOKER CAME TO SEE PT AND LOOKS HIM SO TIRED. MAY HAVE LATE THERAPY TODAY SO PT CAN REST. FALL PRECAUTION IN PLACE. BED ALARN IS ON. CALL LIGHT WITHIN REACH. WILL CONTINUE TO CHECK FREQUENTLY FOR NEEDS AND SAFETY. PT DENIES PAIN. C/O DRY MOUTH, ICE CHIPS GIVEN. ENCOURAGED PT TO SIT UP RIGHT WHEN DRINKING. NURSING WILL CONTINUE MONITORING.
[2019-07-17 08:10] VITALS: BP 127/72
[2019-07-17 08:12] VITALS: BP 127/72
--- NOTE | 2019-07-17 10:13 | NUR ---
WOUND CARE CONSULT; A FRICTION WOUND TO THE LEFT BUTTOCK. CLEAN WOUND BED WITH NO S/S OF INFECTION. RECOMMENDATION; ZGUARD TO LEFT BUTTOCKS DAILY/PRN DISCUSSED WITH RN
--- NOTE | 2019-07-17 13:14 | NUR ---
Nutrition: pt admitted to rehab unit with post polio syndrome, aspiration pneumonia. Consulted for poor intake. ST rec mechanical soft with nectar thick liquids diet but nsg downgraded pt to pureed over the weekend. Pt is having trouble staying awake for intake or pockets food. CXR improved per ST but will not feed unless pt alert. Pt states he likes the food and his appetite has been down since admit. Not a big eater at home. Fair intake documented initially but last 2 days has been very little. Pt ended up falling asleep during RD interview. RD will assure pt receives a supplement, either ensure pudding or magic cup on all trays. Weight stable past [address] as low risk, follow for improved RALPH/intake.
[2019-07-17 15:51] LABS: HEMOGLOBIN 14.5 gm/dL (14.0-18.0); MCH 30.6 pg (26.0-34.0); MCV 92.7 fL (80.0-100.0); RBC 4.75 mil/uL (4.50-6.00); RDW 14.7 % (10.5-14.5); WBC 9.1 thou/uL (4.0-11.0)
[2019-07-17 15:59] LABS: CALCIUM 8.8 mg/dL (8.5-10.1); CREATININE 1.1 mg/dL (0.7-1.3); POTASSIUM 4.4 mmol/L (3.5-5.1)
[2019-07-17 20:08] VITALS: BP 110/64
--- NOTE | 2019-07-18 00:02 | NUR ---
ASSUMED CARE OF THE PT AT 191 PM. ALERT ET ORIENTED X 2. MAKES NEEDS KNOWN. THE PT IS IN BED AT THIS TIME. HEART RATE REGULAR, LUNGS CLEAR BILATERALLY, RESP., EVEN, AND UNLABORED. +BS HEARD IN ALL 4 QUADRANTS. ABD FLAT, SOFT. +PP BILATERALLY. CALL LIGHT WITHIN REACH.
[2019-07-18 07:45] VITALS: BP 118/63
--- NOTE | 2019-07-18 10:45 | NUR ---
ASSUMED CARE OF THE PT AT 0715. ALERT & ORIENTED X 3, [place], LITTLE FORGETFUL, ABLE TO MAKE NEEDS KNOWN. REASSESSMENT PER CHART. VSS ON 2L OF OXYGEN. MORNING MEDS GIVEN. MEDS CRUSHED WITH APPLE SAUCES. HEART RATE REGULAR, LUNGS CLEAR BILATERALLY, RESP EVEN, AND UNLABORED. BS HEARD IN ALL 4 QUADRANTS. LAST BM WAS LAST NIGHT. NO BM TODAY. ABD FLAT, SOFT. FALL PRECAUTION IN PLACE. CALL LIGHT WITHIN REACH. WILL CONTINUE TO MONITOR. OT ASSIST WITH PT WITH BATH AT THIS MOMENT.
[2019-07-18 12:13] LABS: URINE BILIRUBIN NEGATIVE (Negative); URINE BLOOD TRACE (Negative); URINE CLARITY CLOUDY; URINE COLOR YELLOW; URINE GLUCOSE-RANDOM* NEGATIVE (Negative); URINE KETONES NEGATIVE (Negative); URINE LEUKOCYTES-REFLEX 2+ (Negative); URINE NITRITE-REFLEX NEGATIVE (Negative); URINE PROTEIN (DIPSTICK) NEGATIVE (Negative); URINE UROBILINOGEN 0.2 E.U./dl (0.2-1.0)
[2019-07-18 12:19] LABS: URINE WBC-REFLEX >25 Many /HPF (0-5); YEAST-REFLEX Present (None Seen)
[2019-07-18 12:20] LABS: BACTERIA-REFLEX 1-9 Few /HPF (None Seen); CASTS None Seen /LPF (None Seen); CRYSTALS None Seen /LPF (None Seen); SQUAMOUS 0-3 Few /LPF (0-3); URINE RBC 3-10 Few /HPF (0-2)
--- NOTE | 2019-07-18 12:56 | NUR ---
team meeting, recommendation: re team, in approx 2 weeks ( ), will need increased pd at home and will need someone here and at home with him for meals. needs provale cups 5 cc. needs to offer drink q 1 hr while at home.
[2019-07-18 17:03] VITALS: BP 116/69
[2019-07-18 19:55] VITALS: BP 106/75
[2019-07-19 07:39] VITALS: BP 132/73
[2019-07-19 19:42] VITALS: BP 128/81
--- NOTE | 2019-07-19 21:17 | NUR ---
ASSUMED CARE OF PT AT 0715. PT IS A&OX2-3, AGITATED, AGRESSIVE, AND CONFUSED, REFUSED MEDICAITONS. PT MAKES MULTIPLE ATTEMPTS TO SELF-TRANSFER, FREQUENTLY SHOUTING IN ROOM FOR STAFF AND REQUIRES FREQUENT REORIENTATION. PT YELLING AT STAFF "HOW DARE YOU LEAVE ME ALONE", "I DON'T CARE WHO YOU THINK YOU NEED TO TAKE CARE OF", "YOU HAVE NO RIGHT TO KEEP ME HERE". PT MADE FREQUENT ATTEMPTS TO CALL SON AND CAREGIVER AND WAS CALLING UNKNOWN INDIVIDUALS FROM ROOM PHONE. PT USED EXPLITIVES IN COMMUNICATIONS WITH NURSING STAFF. FALL PRECAUTIONS IN PLACE AND NURSING WILL CONTINUE TO MONITOR.
--- NOTE | 2019-07-20 01:51 | NUR ---
PT ASSESSMENT DONE AND VSS. MEDS GIVEN ORDERED AND WELL TOLERATED. FALL PRECAUTIONS IN PLACE. SLEEPING ON AND OFF. HE IS CONFUSED, IMPULSIVE AND HARD TO REORIENT. INCONTINENT OF URINE. PT HAD BLADDER ACCIDENT, HAD TO CHANGE ENTIRE BED. USES URINAL WITH ASSIST. PT TALKING ABOUT SEEING KITTENS IN HIS ROOM. PROVIDED MUCH EMOTIONAL SUPPORT. WILL CONTINUE TO MONITOR.
[2019-07-20 07:58] VITALS: BP 122/78
--- NOTE | 2019-07-20 11:55 | NUR ---
WOUND CARE FOLLOW UP;(LATE ENTRY) SAW PATIENT 07/19/19 THE BUTTOCKS WOUNDS ARE COPMPLETELY HEALED, USING BARIER CREAM WHICH HAS BEEN EFFECTIVE. RECOMMENDATIONS; NO NEED TO FOLLOW. DISCUSSED WITH RN
--- NOTE | 2019-07-20 12:55 | NUR ---
Calorie count in progress 07/20-07/22
--- NOTE | 2019-07-20 12:55 | NUR ---
Rec lift heart healthy restriction, pt eating poorly
--- NOTE | 2019-07-20 16:46 | H ---
[facility] [place] [address] HISTORY AND PHYSICAL Name: ROMAN REYNOLDS Room #: 514-P ADM IN M.R.#: [id number] Admission: 07/14/19 Attend Phys: Tom Chopra MD Discharge: Date of : 34 Report #: [id number] THIS REPORT FOR: //name// CC: Tom Wilks DATE OF SERVICE: 07/15/2019 POSTADMISSION PHYSICIAN EVALUATION HISTORY OF PRESENT ILLNESS: The patient was seen later yesterday. Please see the full history and physical and agree with the findings as noted. 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 He has had a significant worsening of his symptoms in his 80s and has seen Neurology and undergone further diagnostic testing with another diagnosis of post-polio syndrome. He has had further complaints of weakness in his feet, progressing up to his waist with easy fatigue. His course has been complicated now with a diagnosis of aspiration pneumonia with wide complex tachycardia and superimposed generalized debilitation. Again, please see the full history and physical dictation. On examination, he could lift his legs off the bed, but is just barely above antigravity. He is mod assist for sitting edge of bed. Sit to stand is max assist. He has been on oxygen O2 sats in the 90s. He needs lifting lower extremities into bed. ASSESSMENT: 1. 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 2. Aspiration pneumonia. 3. SVT. 4. Coronary artery disease, status post history of coronary artery bypass graft. 5. Ischemic cardiomyopathy. 6. Hypertension with current hypotension. 7. Hyperlipidemia. 8. Mild aortic stenosis. PLAN: From a postadmission physician evaluation perspective, there are no relevant changes since the preadmission screening. Please see the above review of prior and current medical and functional conditions and comorbidities. Please see the patient's previous and current functional status. As far as risk of complications, he has the multiple medical comorbidities as noted above. Initial plan of care involves the interdisciplinary acute inpatient rehabilitation program with goal maximizing his functional independence, so he can hopefully return back to his prior living situation. Measurable functional goals would be for him to become modified independent with transfers, mobility and ADLs, so he can hopefully return back to his prior living situation. Prognosis is reasonably good with estimated length of stay probably at least 2-3 weeks and likely longer as he is at a lower level and is going to need increased [address] [address] HISTORY AND PHYSICAL Name: ROMAN REYNOLDS Room #: 514-P ADM IN [facility].#: [id number] Admission: 07/14/19 Attend Phys: Tom Chopra MD Discharge: Date of : 32 Report #: [id number] caregiver assistance at home. Potential barriers would include his multiple medical comorbidities and decreased functional status. <ELECTRONICALLY SIGNED> By: Tom Chopra MD 07/20/19 1646 [id number] Tom Chopra MD /tracy
[2019-07-20 17:33] LABS: HEMATOCRIT 47.7 % (42.0-52.0); HEMOGLOBIN 15.5 gm/dL (14.0-18.0); MCH 30.1 pg (26.0-34.0); MCHC 32.6 g/dL (28.0-37.0); MCV 92.4 fL (80.0-100.0); RBC 5.16 mil/uL (4.50-6.00); RDW 14.7 % (10.5-14.5); WBC 7.6 thou/uL (4.0-11.0)
[2019-07-20 17:48] LABS: ALBUMIN 3.2 g/dL (3.4-5.0); CALCIUM 9.4 mg/dL (8.5-10.1); CREATININE 1.3 mg/dL (0.7-1.3); POTASSIUM 4.3 mmol/L (3.5-5.1); TOTAL BILIRUBIN 0.7 mg/dL (<0.1-1.0); TOTAL PROTEIN 7.3 g/dL (6.4-8.2)
--- NOTE | 2019-07-20 18:12 | NUR ---
07/19/[address] BOOKER ABOUT ORDERS FOR C.DIFF SAMPLE. PT CONSTIPATED FOR 2 DAYS PRIOR AND CURRENTLY W/O S/S OF C. DIFF. ORDERS D/C'D WITH APPROVAL OF PROVIDER.
--- NOTE | 2019-07-20 19:59 | NUR ---
ASSUMED CARE OF PT AT 0715. PT IS A&OX2-3 AND THIS MORNING HAD PERIODS OF AGRESSIVENESS, CONFUSSION, AGITATION, AND FREQUENTLY USED FOUL LANGUAGE TO STAFF MEMBERS. PT REFUSED TO TAKE LACTOBACILLIS, 1 TAB OF AMIODORONE, AND GUIFENESIN. PT NON-COMPLIANT WITH SWALLOW STRATAGIES AT DINNER OR WHEN IN ROOM. PT BROTHER IN ROOM THIS AFTERNOON WHICH SIGNIFICANTLY CALLED PT, PT BECAME ANXIOUS AND AGITATED WHEN BROTHER LEFT THE UNIT. PT FREQUENTLY CALLING OUT WHEN IN ROOM AND YELLING AT STAFF WHEN THEY ARE NOT IN THE ROOM WITH HIM. PT TOLERATED ROOM AIR THIS SHIFT WITH SPO2 >90%. PT DENIES PAIN, BUT PER REPORTS DID NOT PARTICIPATE FULLY IN ALL THERAPIES. FALL PRECAUTIONS IN PLACE AND NURSING WILL CONTINUE TO MONITOR, NURSING RECOMMENDATION TO KEEP PT IN CURRENT ROOM DUE TO HIGH FALL RISK AND NEED TO BE IN LINE OF SITE AT ALL TIMES.
[2019-07-20 20:46] VITALS: BP 107/66
--- NOTE | 2019-07-21 03:05 | NUR ---
PT ASSESSMENT DONE AND VSS. MEDS GIVEN ORDERED. FALL PRECAUTIONS IN PLACE. SLEEPING WELL. WILL CONTINUE TO MONITOR.
[2019-07-21 08:00] VITALS: BP 119/72
--- NOTE | 2019-07-21 16:54 | NUR ---
ASSUMED CARE OF PT AT 0715. PT IS A&OX2-3. PT DENIES PAIN AND WAS ABLE TO PARTICIPATED IN SOME THERAPIES, BUT DOES CONTINUE TO BE NON-COMPLIANT AND REFUSE THERAPIES. PT CONTINUES TO STRUGGLE WITH SWALLOWING AND FOLLOWING SAFE SWALLOWING STRATAGIES. FREQUENT COUGHING WITH PO INTAKE. PT UP IN W/C AT TABLE FOR ALL MEALS WITH PROVALE CUP. FALL PRECAUTIONS IN PLACE AND NURSING WILL CONTINUE TO MONITOR.
--- NOTE | 2019-07-21 17:48 | NUR ---
URINE C/S POSITIVE FOR YEAST. DR. PAK'S OFFICE CALLED AND MESSAGE LEFT WITH AUTOMOBILE MECHANIC APPRENTICE. NO CALL BACK OR ORDERS AT THIS TIME.
[2019-07-21 19:50] VITALS: BP 114/72
--- NOTE | 2019-07-21 19:57 | NUR ---
ASSUME PT CARE AT 1900. NOTIFIED DR. CAAL ABOUT UA RESULT WITH YEAST. RECIEVED T.O FOR DIFLUCAN 150MG PO ONE TIME AND RECHECK UA ON WEDNESDAY. ALSO NOTIFIED DR. CAAL THAT B/P WAS LOW AND DAY NURSE HELD CARVEDILOL. OBTAINED ORDER TO PUT PARAMETER ON CARVEDILOL. HOLD IF HR BELOW 60 AND SBP BELOW 110. WILL CONTINUE TO MONITOR.
[2019-07-22 08:00] VITALS: BP 110/68
--- NOTE | 2019-07-22 11:14 | NUR ---
ASSUMED CARE AT 0700. PATIENT IS ALERT AND ORIENTED X4. PATIENT MENDEZ'S, GEOPHYSICAL DATA TECHNICIAN ARE EQUAL. LUNGS ARE CLEAR AND DEMINISHED. ABD IS SOFT WITH BSX4. DRESSNG CHANGED TO CHEST, AND CHEST AND LEGS AND FEET. UP TO THE BATHROOM TO VOID AND HAVE LARGE BM. UP ON THE SIDE OF THE BED FOR MEALS. FALL AND SAFETY PROTOCOLS IN PLACE. C/O PAIN IN HER RIGHT LEG. MEDICATED WITH PRN PAIN MED. AT BEDSIDE. WILL CONTINUE TO MONITER.
[2019-07-22 20:38] VITALS: BP 122/67
[2019-07-23 08:00] VITALS: BP 91/59
--- NOTE | 2019-07-23 10:04 | NUR ---
ASSUMED CARE AT 0700. PATIENT IS ALERT AND ORIENTED X2. PATIENT MENDEZ'S. SPECIAL EFFECTS DESIGNER ARE EQUAL. LUNGS ARE COARSE AND DEMINISHED. ABD IS SOFT WITH BSX4. PATIENT IS VOIDING SAGRARIO COLORED URINE PER URINAL. UP IN W/C AND OUT TO THE DINING ROOM FOR MEALS. PATIENT IS UP WITH GAIT BELT AND WALKER TO W/C. FALL AND SAFETY PROTOCOLS IN PLACE. DENIES ANY PAIN AT THIS TIME. CONTINUE TO PROGRESS SLOWLY TOWARDS D/C GOAL. WILL CONTINUE TO MONITER
--- NOTE | 2019-07-23 12:03 | HC ---
[facility] [place] [address] CONSULTATION Name: ROMAN REYNOLDS Room #: 514-P ADM IN M.R.#: [id number] Admission: 07/14/19 Attend Phys: Tom Chopra MD Discharge: Date of : 32 Report #: [id number] THIS REPORT FOR: //name// CC: Tom Wilks DATE OF SERVICE: 07/16/2019 NEUROBEHAVIORAL STATUS EXAM: AGE: 89. ATTENDING PHYSICIAN: Tom Chopra MD CONSULTANTS: Leroy Baig, PhD CLINICAL PRESENTATION: The patient is an 89-year-old male initially admitted to [facility] with a diagnosis of aspiration pneumonia and wide complex tachycardia. His problem list was reported as abdominal pain, atrial flutter, bronchitis, dyspnea, non-ST elevated myocardial infarction, pneumonia, urinary retention and UTI infection, weakness and yeast cystitis. The patient had a CABG x 3 in 1995. Assessment on admission to rehab included high cholesterol; postpolio syndrome; cardiac stents x 2; hernia repair x 2; EGD ulcers; hypothyroidism; osteoarthritis; GI bleed; elevated PSA, negative for prostate cancer; diverticulitis; and lower back pain. A complete description of his medical condition, and history can be found in his medical record. Neuropsychological consultation was requested to provide assistance in the assessment of cognitive and emotional status and to provide recommendations and services. Prior to this most recent admission, the patient reports having been living independently in his own home. However, it is noted that he has a caregiver that has been providing assistance. He has discontinued driving. His had in 06/2019. The caregiver is available 4 hours a day 5 days a week but reports to have been cutting back to 3 hours a day 3 days a week. He reports having fallen frequently. He has 2 children, 1 child lives in the [place] area. The patient is a retired pharmacist. His family is supportive. TECHNIQUES UTILIZED: Clinical interview, review of medical records, staff consultation and behavioral observation, mini mental status exam 2 standard version. EXAMINATION FINDINGS: The patient was very drowsy throughout the interview. He [facility] [address] [place] [address] CONSULTATION Name: ROMAN REYNOLDS Room #: 514-P ADM IN M.R.#: [id number] Admission: 07/14/19 Attend Phys: Tom Chopra MD Discharge: Date of : 32 Report #: [id number] required continual encouragement to maintain a level of alertness and attention to the task. He reports having had macular degeneration, which affects visual acuity. His performance on the MMSE 2 brief version was 10 of 16, which is extremely low. He was 3/3 for initial registration, 2/5 for orientation to time and 4/[address]. He was 1/3 for immediate recall of 3 items after a brief time delay and distraction. Performance on the MMSE 2 standard version was extremely low with a raw score of 18 of 30. He was 1/5 for serial sevens, 2/2 for naming, 1/1 for repetition, 3/3 for auditory comprehension. He was able to read and follow single command. The patient was unable to write a sentence or copy a simple geometric design. The patient is presenting with delirium at this time. He is very confused and indicates that the year is 1998. Decreased alertness, fatigue and lethargy was was noted throughout the assessment. His mood appears very depressed and anxious. DIAGNOSTIC IMPRESSION: Delirium, hypoactive, acute. Unspecified depressive disorder. Neurocognitive disorder - extent to be determined. RECOMMENDATIONS: At this time, the patient requires 24-hour care that includes supervision in the management of medication, finances and nutrition. However, he presents with delirium and his level of functioning will likely improve as the delirium resolves. Medication with sedating features should be reduced as much as medically appropriate. The use of antidepressant medication is recommended. Continual stimulation that includes frequent orientation will be helpful. Follow up neuropsychological testing post discharge when his condition is more stable will help clarifity the severity of cognitive deficits. Thank you very much for allowing me to provide the consultation on this patient. <ELECTRONICALLY SIGNED> By: Leroy Baig, PhD 07/23/19 1203 [id number] Leroy Baig, PhD /nt
[2019-07-23 19:50] VITALS: BP 111/70
--- NOTE | 2019-07-24 01:23 | NUR ---
PATIENT SITTING UP IN CHAIR WHEN THIS NURSE ARRIVED AT 1900. HE IS A/OX2. HE TOOK HIS HS MEDS CRUSHED EXCEPT FOR GUIAFENSIN D/T NOT TO CRUSH. HE SWALLOWED FINE. HE CONTINUES TO DRINK FROM HIS PROVAIL CUP ONLY AND HAS HAD WATER WITH MEDS. NO COUGHING OR PROBLEMS SWALLOWING MEDS. PATIENT IS RESTLESS AND IS UP AND DOWN ALOT WANTING TO USE THE BSC OR URINAL WITH ASSIST WHICH VOIDS SOME OF THOSE TIMES. PATIENT DID HAVE A BM 07/23. AT AROUND 1230 HE WANTED UP TO THE RECLINER TO SLEEP. ACETAMINOPHEN 650MG GIVEN TO HIM FOR POSSIBLE GENERALIZED PAIN AND TO HELP REST. CHAIR ALARM IS ON. WHEN PATIENT IS IN BED THE BED ALARM IS ON AND BED IS IN LOW POSITION. PATIENT RECIEVING ROUTINE BREATHING TX AT THIS TIME. HIS O2 SAT IS 94% ON ROOM AIR. HIS LUNGS ARE DIMINISHED AND COARSE AT TIMES. CONTINUING TO MONITOR.
[2019-07-24 07:53] VITALS: BP 128/81
--- NOTE | 2019-07-24 07:54 | NUR ---
ASSUME PT CARE AT 0700. PT EXPRESSED SOME OF CONFUSION "WHERE AM I? WHY I AM HERE?" NIGHT NURSE SAID SHE GAVE PT XANAX 8PM LAST NIGHT TO HELP PT CALM SO HE CAN GO TO SLEEP. PT WAS FINE FOR WHILE AND RESTLESS ALL NIGHT AND FINALLY ABLE TO GO TO SLEEP 5AM THIS AM. PT LOOKS DROWSY BUT ABLE TO RECOGNIZE AND REMEMBER MY NAME. ABLE TO CORRECT BASIC QUESTION HE KNOWS HE AT [facility], JUL 2019. BUT DOESN'T KNOW THE SITUATION. OFFERED SUPPORT, ENSURANCE AND SAFETY. VSS ON RA. PT DROWSY, AND SLEEPY AND OCCASIONALLY AWAKE WITH CONFUSION. WILL RECHECK UA TODAY. NO SIGNS OF ACUTE AT THIS MOMENT. NOTIFIED DR. BOOKER TO HAVE LATE THERAPY SO PT CAN HAVE SOME MORE TIME TO REST. FALL PRECAUTION IN PLACE. CALL LIGHT WITHIN REACH. REDNESS ON BUTTOCK BETTER, CONTINUE TO BE ON LOW AIR LOSS MATRESS, ENCOURAGED PT TO TURN AND APPLY ZGUARD ORDERED. WILL CONTINUE TO MONITOR.
[2019-07-24 11:16] VITALS: BP 106/69
--- NOTE | 2019-07-24 12:06 | NUR ---
cm was asked to visit with private duty cg iris at bedside. cm visited with pt and iris. johsua up in recliner resting with eyes open and closed. " if he is going to need lifting i am non lift cg and would not be able to do pd with him and might have to count me out. need to know how many hour he will need pd and how do set up hh, with [facility]?"/iris. re-education that cm will set up hh but unable to set up pd rt pt and family will have to work on bills and cost of private duty set up, recommendation 24hr and will need someone with him during all meals rt swallow precaution. [facility] has hh and pd but doesnt offer vital stim. cm provided pt and iris hh list choice again rt pt needs vital stim. will cont following as needed for dc needs.
--- NOTE | 2019-07-24 13:13 | NUR ---
Nutrition: Unable to record day 2 of calorie count, no records in envelope. % intake of meals is recorded as 25-100% past 2 days and po intake of supplements, 50-100%. Receives Ensure TID. ST trialing mech soft tray with pt at lunch today, ate very little and was sleeping at breakfast-did not consume. RD will followup 07/25 to record last day calorie count.
[2019-07-24 15:02] VITALS: BP 98/64
[2019-07-24 15:35] LABS: URINE BILIRUBIN NEGATIVE (Negative); URINE BLOOD 1+ (Negative); URINE CLARITY CLEAR; URINE COLOR YELLOW; URINE GLUCOSE-RANDOM* NEGATIVE (Negative); URINE KETONES NEGATIVE (Negative); URINE NITRITE-REFLEX NEGATIVE (Negative); URINE PROTEIN (DIPSTICK) TRACE (Negative); URINE SPECIFIC GRAVITY 1.015 (1.005-1.035); URINE UROBILINOGEN 0.2 E.U./dl (0.2-1.0)
[2019-07-24 15:39] LABS: URINE LEUKOCYTES-REFLEX 3+ (Negative)
[2019-07-24 15:41] LABS: CASTS None Seen /LPF (None Seen); CRYSTALS None Seen /LPF (None Seen); SQUAMOUS None Seen /LPF (0-3); URINE WBC-REFLEX >25 Many /HPF (0-5); YEAST-REFLEX Present (None Seen)
[2019-07-24 15:42] LABS: BACTERIA-REFLEX 1-9 Few /HPF (None Seen); URINE RBC 3-10 Few /HPF (0-2)
[2019-07-24 19:50] VITALS: BP 96/68
--- NOTE | 2019-07-25 05:20 | NUR ---
1909- Report given by day shift nurse and care assumed. He was med. compliant and slept for a couple hours soundly tonite, c.o. being anxious in the late nite hours, comforted and was minimally effective. Notably confused in the nite as well.
[2019-07-25 07:48] VITALS: BP 122/82
--- NOTE | 2019-07-25 07:51 | NUR ---
ASSUME PT CARE AT 0700. VSS ON RA. REPORTS HAD SOME SLEEP LAST NIGHT BUT STILL HAS CONFUSION PER NIGHT NURSE. UA RESULT NOTIFIED DR. CAAL. RECEIVED T.O ORDER FOR LEVAQUIN 500MG DAILY FOR 7 DAYS NOW WHILE STILL WAITING FOR C&S. PT IS ALERT. ASSIST PT TO GET UP TO DINNING ROOM. DENIES PAIN. STILL HAS SOME REDNESS ON BUTTOCK. CONTINUE TO APPLY ZGUARD. LOW AIR MATTRESS IN PLACE AND WAFLLE CUSHION FOR CHAIR. OFFERED SUPPORTIVE CARE. ENCOURAGED PT TO VOICE HIS NEEDS. REASSESSMENT PER CHART. PT GETS ALONG WITH THIS WRITTER. FALL PRECAUTION IN PLACE. CALL LIGHT WITHIN REACH. WILL CONTINUE TO MONITOR AND CHECK FREQUENTLY FOR NEEDS AND SAFETY. PT LAST BM WAS 2 DAYS A GO. OFFERED COLACE. PT REFUSES. WILL CONTINUE TO MONITOR.
[2019-07-25 08:45] VITALS: BP 93/50
[2019-07-25 09:11] VITALS: BP 106/60
--- NOTE | 2019-07-25 13:08 | NUR ---
Nutrition: day 2 of calorie count shows pt met 40% kcal needs, 50% protein needs with majority of nutrition coming from ensure supplements. Continue to encourage drinking TID. If pt able to drink ensure TID will meet 50-75% of needs from supplements alone. No weight since 07/14. REC obtain new weight. Pt may require supplemental enteral feeds if significant weight decline and/or po not improved soon.
--- NOTE | 2019-07-25 13:45 | NUR ---
team meeting, recommendation: dc 24hr x 7 cg, will need pd cg that will be able to assist limited/mod with lift needs for transfer. hh (pt, ot,st with vital stim, sw and nursing).
[2019-07-25 20:09] VITALS: BP 110/51
--- NOTE | 2019-07-26 04:44 | NUR ---
ASSUMED CARE OF PT AT 1915. PT ALERT AND ORIENTED TO PERSON, PLACE AND TIME, FORGETFUL, VITAL SIGNS STABLE. PT ASSISTED TO BED AT APPROXIMATELY 2000. PT AWAKE FREQUENTLY, FREQUENTLY DISORIENTED AND CONFUSED, FREQUENTLY CALLING OUT, ASKING FOR URINAL APPROXIMATELY EVERY 30 MINUTES TO 1 HOUR WHERE PT WOULD URINATE 50-75ML AT A TIME. PT UNABLE TO URINATE IN URINAL WITHOUT TOTAL ASSISTANCE. PT ATTEMPTED TO GET OUT OF BED AT 1600 WITHOUT ASSISTANCE AND REPORTED THAT HE BELIEVED HE WAS AT HIS HOME. DENIES PAIN. FALL PRECAUTIONS IN PLACE AND NURSING WILL CONTINUE TO MONITOR.
[2019-07-26 07:20] VITALS: BP 110/73
--- NOTE | 2019-07-26 16:24 | NUR ---
DISCHARGE PLANNING: NURSE HIGH SCHOOL SCIENCE TUTOR FOLLOWED UP WITH PT'S CAREGIVER HOLLY ARECHIGA REGARDING HER QUESTIONS THAT SHE HAD FOR THE VASCULAR NURSE. HOLLY STATED THAT SHE IS SETTING UP HOME CARE PRIVATE DUTY FOR THE PATIENT, IN THE HOURS THAT SHE IS NOT ABLE TO CARE FOR HIM HERSELF. WE DISCUSSED THE "NO LIFTING" POLICY OF HER COMPANY AND THAT PT WILL NEED "SOME" ASSIST FROM SIT TO STAND. HOLLY STATED THAT LONG IT WASN'T EXTENSIVE LIFTING, SHE WAS COMFORTABLE WITH ASSISTING WITH SIT TO STAND AND TRANSFERS, AND SHE HAS WATCHED HIM MOVE TODAY, SHE FEELS THAT SHE AND OTHER PRIVATE CAREGIVERS WILL BE ABLE TO ASSIST HIM WITHOUT A PROBLEM. SHE STATED THAT SHE WILL SET UP PRIVATE CAREGIVERS FOR THE HOURS OF 8AM-6PM EVERY DAY, BUT THAT THE PT'S SON WILL HAVE TO GET CAREGIVERS FOR NIGHT TIME, THE PATIENT HAS SPECIFIED THAT HE WILL NOT ALLOW AMERICANS TO CARE FOR HIM, AND SHE CANNOT ACCOMMODATE THIS FOR NIGHT TIME. HOLLY VERBALIZED THAT THE VASCULAR NURSE WILL NEED TO REACH OUT TO THE SON, CAMELIA, AND THAT IT'S EASIER TO REACH HIM ON HIS WORK PHONE AT [phone]. CAMELIA WILL HAVE TO OFTAIN CAREGIVERS FOR NIGHT. HOLLY STATED THAT [facility] WAS THE COMPANY THEY CHOSE, BUT SHE UNDERSTANDS THAT PT WILL NEED VITAL STIM, AND THERE IS NO PREFERENCE REGARDING THE HH THERAPIES, SO CASE MGMT TO SELECT THE HH COMPANY THAT MEETS HIS NEEDS. HOLLY ALSO STATED THAT THE PT WILL NEED A WHEELCHAIR AT DISCHARGE, THAT HE DOESN'T HAVE ONE CURRENTLY. THIS HAS BEEN COMMUNICATED TO THE CASE MGMT TEAM.
--- NOTE | 2019-07-26 20:16 | NUR ---
PT ALERT AND ORIENTED THIS THREE. VSS. PT DENIES PAIN/SOA. PT WORKED WELL WITH PT/OT TODAY. PT TOLERATES MEDS AND MEALS. PLANS TO DISCHARGE TO HOME WEDNESDAY. PT PROGRESSING TOWRADS POC GOALS.
[2019-07-26 20:37] VITALS: BP 99/63
--- NOTE | 2019-07-27 03:31 | NUR ---
RECEIVED REPORT FROM OFFGOING DAY NURSE, ASSUMED CARE @ 19:15. A&O X 4 CONTINENT OF B&B, AMBULATE X 1 ASSIST TO TOILET. DIET IS PUREE, DRINKS THIN LIQUIDS WITH A SPECIAL CUP. ASPIRATION PNEUMONIA BEING TREATED. ON ROOM AIR. SLEPT SOME IN THE NIGHT AND AWAKE AT TIMES.
[2019-07-27 07:10] VITALS: BP 99/63
--- NOTE | 2019-07-27 11:28 | PLAN ---
[facility] [place] [address] REHAB UNIT PLAN OF CARE Name: ROMAN REYNOLDS Room #: 514-P ADM IN M.R.#: [id number] Admission: 07/14/19 Attend Phys: Tom Chopra MD Discharge: Date of : 32 Report #: [id number] THIS REPORT FOR: //name// CC: Tom Wilks DATE OF SERVICE: 07/17/2019 PROGRESS NOTE/OVERALL PLAN OF CARE SUBJECTIVE: The patient is seen back today in followup. He had a rough night with some restlessness was given Haldol. Note that there is a red area of his coccyx small open 0.5 x 0.5 with barrier cream low air loss mattress and wound consult ordered. He was more sleepy when I saw him this morning. He had had the agitation and impulsiveness last night, warranting the Haldol. In therapies, he has been max assist with coming to stand and mod assist to try to ambulate a short distance with a front-wheeled walker. Lower body dressing has been dependent. He is noted to have rzrg-bh-wjoevosd dysphagia, although he is on a mechanical soft, thin liquid diet. ASSESSMENT: 1. 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 2. Aspiration pneumonia. 3. Some increased confusion last night. He was given Haldol. We will order some followup labs as well. Dr. Wilks is following regarding medical issues. He is getting a chest x-ray in followup this morning. 4. History of supraventricular tachycardia. 5. Coronary artery disease with prior coronary artery bypass grafting. 6. Ischemic cardiomyopathy. 7. Hypertension. 8. Hyperlipidemia. 9. Mild aortic stenosis. PLAN: The overall plan of care is based on the preadmission screen, post-admission physician evaluation and information garnered from therapy assessments. 1. Estimated length of stay is probably at least 7-14 days pending progress. 2. Medical prognosis is reasonably good. 3. Anticipated interventions includes the interdisciplinary acute inpatient rehabilitation program. 4. Anticipated functional outcomes would be for the patient to become modified independent with transfers, mobility and ADLs. He does have the lower extremity weakness with his postpolio syndrome. 5. Discharge destination, he had been living at home by himself and had caregiver assistance. We will likely need to have that caregiver assistance increased. [address] [address] REHAB UNIT PLAN OF CARE Name: ROMAN REYNOLDS Room #: 514-P [facility] IN M.R.#: [id number] Admission: 07/14/19 Attend Phys: Tom Chopra MD Discharge: Date of : 32 Report #: [id number]. Expected therapy by discipline includes PT and OT and speech 1 hour per day each five days a week throughout the duration of the acute inpatient rehabilitation stay. Speech therapy assist regarding cognition and communication assessment as well as his swallowing. ADDENDUM The patient also has dysphagia and for that reason, we are getting the followup chest x-ray and has a history of aspiration pneumonia. Speech therapy is continuing to work with him while on the rehab choi and they will also be evaluating him regarding cognition and communication issues as well as his swallowing. <ELECTRONICALLY SIGNED> By: Tom Chopra MD 07/27/19 [id number] Tom Chopra MD /nt
--- NOTE | 2019-07-27 12:04 | NUR ---
ASSUMED CARE [id number] THIS MORNING. HE WAS IN THE DINING ROOM WORKING WITH SPEECH THERAPY TO EAT BREAKFAST. HE IS PLEASANT AND COOPERATIVE WITH STAFF. HE WANTED TO LOOK OVER HIS MEDICATIONS BEFORE THEY WERE GIVEN TO HIM. HIS MEDS WERE CRUSHED AND PUT IN PUDDING. HE TOOK THEM WITHOUT DIFFICUTY. AFTER A THERAPIES HE RETURNED TO HIS ROOM, WAS HELPED TO USE THE URINAL (HIS OUTPUT WAS ABOUT 50 CC AT THAT TIME). HE LAYED DOWN IN BED AND FELL ASLEEP. HE WOKE UP A WET BED. STAFF HELPED HIM CLEAN UP. HIS BEDDING WAS CHANGED. HE RETURNED TO SLEEP. SPEECH THERAPY HELPED HIM EAT LUNCH ALSO.
--- NOTE | 2019-07-27 13:30 | NUR ---
cm spoke with pcg iris who stated " any hh is ok with him and us, he is getting chest crx now and was up but if he declines like this we cant take him home, his son naresh is going to arrange night time cg"/iris.
--- NOTE | 2019-07-27 14:55 | NUR ---
DISCUSSED PATIENT'S DEMONSTRATED SWALLOWING ABILITIES, OVERT S/S AND PULMONARY STATUS WITH THE PATIENT'S REHAB NURSE PRACTITIONER. PLAN IS TO COMPLETE A REPEAT VIDEO SWALLOW STUDY TOMORROW TO ASSESS IF ASPIRATION MAY BE CONTRIBUTING TO LACK OF IMPROVEMENT IN PULMONARY STATUS.
[2019-07-27 19:05] VITALS: BP 108/62
[2019-07-27 19:33] VITALS: BP 119/77
--- NOTE | 2019-07-28 07:55 | NUR ---
cm spoke with physical therapy to let team now to reach out to pt son naresh rt family training, " thank you for calling i will call him"/physical therapy.
--- NOTE | 2019-07-28 08:42 | NUR ---
DISCHARGE PLANNING. ANTICIPATED DISCHARGE IS PLANNED FOR THE BEGINNING OF NEXT WEEK PER CM. HOME HEALTH RECOMMENDED AT DISCHARGE. REFERRAL FAXED TO [facility] FOR PATIENTS HH NEEDS PER PATIENT REQUEST. AWAITING RESPONSE FROM [facility]. FOLLOWING TO ASSIST WITH DISCHARGE NEEDS.
[2019-07-28 12:00] VITALS: BP 106/70
[2019-07-28 12:01] VITALS: BP 93/58
[2019-07-28 12:02] VITALS: BP 87/67
[2019-07-28 13:51] LABS: HEMATOCRIT 44.3 % (42.0-52.0); HEMOGLOBIN 14.4 gm/dL (14.0-18.0); MCH 30.2 pg (26.0-34.0); MCHC 32.6 g/dL (28.0-37.0); MCV 92.5 fL (80.0-100.0); RBC 4.79 mil/uL (4.50-6.00); RDW 15.3 % (10.5-14.5); WBC 5.2 thou/uL (4.0-11.0)
[2019-07-28 13:56] LABS: CALCIUM 9.5 mg/dL (8.5-10.1); CREATININE 1.4 mg/dL (0.7-1.3); POTASSIUM 4.3 mmol/L (3.5-5.1)
[2019-07-28 14:02] LABS: ALBUMIN 2.9 g/dL (3.4-5.0); TOTAL BILIRUBIN 0.9 mg/dL (<0.1-1.0); TOTAL PROTEIN 6.6 g/dL (6.4-8.2)
[2019-07-28 15:48] LABS: URINE BILIRUBIN NEGATIVE (Negative); URINE BLOOD 1+ (Negative); URINE CLARITY CLOUDY; URINE COLOR YELLOW; URINE GLUCOSE-RANDOM* NEGATIVE (Negative); URINE KETONES NEGATIVE (Negative); URINE NITRITE-REFLEX NEGATIVE (Negative); URINE PROTEIN (DIPSTICK) NEGATIVE (Negative); URINE SPECIFIC GRAVITY 1.015 (1.005-1.035); URINE UROBILINOGEN 0.2 E.U./dl (0.2-1.0)
[2019-07-28 15:49] LABS: URINE LEUKOCYTES-REFLEX 3+ (Negative)
[2019-07-28 15:55] LABS: URINE WBC-REFLEX >25 Many /HPF (0-5)
[2019-07-28 15:56] LABS: AMORPHOUS URATES Moderate /LPF (None Seen); CASTS None Seen /LPF (None Seen); SQUAMOUS 0-3 Few /LPF (0-3); URINE RBC 0-2 Rare /HPF (0-2)
--- NOTE | 2019-07-28 17:01 | NUR ---
PT ALERT AND ORIENTED TIMES THREE. PT C/O NOT FEELING WELL MID MORNING. PT BP LOW SEE CHART. NOTIFIED 1000CC NS ORDRED ONETIME AND GIVEN. PT DENIES PAIN. PT REFUSED TO WORK WITH PT/OT TODAY AWARE. FAMILY AT BEDSIDE. WILL CONTINIUE TO MONITOR.
[2019-07-28 19:50] VITALS: BP 117/72
--- NOTE | 2019-07-29 03:11 | NUR ---
ASSUMED CARES AT 1900. PT ORIENTED*3, CONFUSED. DENIES PAIN. VITALS REMAIN STABLE. NON-PRODUCTIVE COUGH NOTED. PT REMAINS INCONTINENT OF BLADDER, UPTO THE BATHROOM NUMEROUS TIMES THROUGH THE NIGHT. YELLING FOR HELP INSTEAD OF USING CALL LIGHT. PT REMAINS NPO OTHER THAN SIPS OF WATER BEFORE MIDNITE. UP WITH 1 MIN ASSIST, GB AND WALKER. UP IN THE RECLINER FROM 0300. FREQUENT VISUAL CHECKS. CALL LIGHT WITHIN REACH. FALL PRECAUTIONS IN PLACE.
[2019-07-29 05:38] LABS: HEMATOCRIT 43.4 % (42.0-52.0); HEMOGLOBIN 14.3 gm/dL (14.0-18.0); MCH 30.4 pg (26.0-34.0); MCHC 32.8 g/dL (28.0-37.0); MCV 92.6 fL (80.0-100.0); RBC 4.69 mil/uL (4.50-6.00); RDW 14.9 % (10.5-14.5); WBC 7.2 thou/uL (4.0-11.0)
[2019-07-29 05:54] LABS: CALCIUM 9.1 mg/dL (8.5-10.1); CREATININE 1.2 mg/dL (0.7-1.3); POTASSIUM 4.6 mmol/L (3.5-5.1)
[2019-07-29 08:18] VITALS: BP 92/54
[2019-07-29 19:28] VITALS: BP 100/68
--- NOTE | 2019-07-29 19:58 | NUR ---
ASSUMED CARES AT 0700. VSS ON RA. PT ORIENTED X3, CONFUSED AND SLEEPY AT TIME. REPORTS HE DIDN'T SLEEP WELL AT NIGHT. NOTIFIED DR. CAAL, WHO CAME TO SEE PT AND DISCUSSED WITH PT IF HE IS OK TO TRY ROSIE BRODY. DR. CAAL AWARES OF KUB AND CHEST XRAY. WANT TO RECHECK KUB TODAY. REASSESSMENT PER CHART. BS PRESENT LAST BM WAS 6 DAYS AGO. GAVE PRN COLACE AND BISACODYL. VITALS REMAIN STABLE. NON-PRODUCTIVE COUGH NOTED. PT CALLED FOR URINAL OFTEN. CONTINUE TO BE ON LEVAQUIN FOR UTI. RESULT FOR C&S UNTIL TOMORROW. UP TO THE BATHROOM NUMEROUS TIME, HAS DRIPPING URINE. CHANGED CLOTHES 2X. PT C/O FEELING WEAK. ENCOURAGED PT TO DINNING ROOM FOR MEALS D/T ON ASPIRATION PRECAUTION STILL HAS POOR APPETITE. ATE 25% EACH MEALS. UP WITH 1 MIN ASSIST, GB AND WALKER. MOUTHCARE DONE. NOTED KUB RESULT TODAY. CALLED DR. CAAL GAVE REPORT AND RECEIVED ORDERS FOR DAILY LAXATIVES. GAVE REPORT TO NIGHT RN TO CONTINUE TO MONITOR. FALL PRECAUTION IN PLACE. CALL LIGHT WITHIN RECHECK. CHECKED FREQUENTLY FOR NEEDS AND SAFETY.
--- NOTE | 2019-07-30 04:39 | NUR ---
1899-Report received from day shift nurse and care assumed. Dean asked about the medicines given to him tonite as well. He requested Ambien medicine prn and he said he "hadn't slept well lately". He was given Ambien 5 mg. po prn with his HS medications. It was not effective. He was restless tonite and noted talking to himself thru the night with anxiety. He slept for about 1.5 hours then became restless and talked to unseen others. He also had to use the urinal often and was incontinent x 2 with lightly wet brief. Notably he retained the urine though as the urinal output was none or very little. No c.o. pain voiced, pt. was compliant with Resp. Treatments. Post void residual by bladder scan was = 573 cc. The Hospitalist was called and said to straight cath. x 1. 800 cc valentina color urine. He would ask what time it was every visit, asked about what staff was doing. He continues on Levaquin ABT for UTI and culture pending. Rt. saline lock in Rt. forearm. Medications crushed in applesauce.
[2019-07-30 08:00] VITALS: BP 100/74
--- NOTE | 2019-07-30 14:45 | NUR ---
ASSUMED CARE AT 0700, SHIFT ASSESSMENT DONE, MEDS GIVEN, VSS. DENIES PAIN, NAUSEA, VOMITING. UP WITH STANDBY ASSIST FOR MEALS. URINARY RETENTION FROM LAST NIGHT. NIGHT NURSE GOT ORDER FOR MERRILL, BUT PT REFUSED INITIALLY. DR CAAL INFOMRED, ORDER RECEIVED TO DO A POST VOID RESIDUAL AND STRAGHT CATH PRN IF RETENTION IS MORE THAN 250 MLS. PT TRIED TO VOID, BUT WAS NOT ABLE TO, BLADDER SCANNED AT 1300, URINARY RETENTION OF 700 ML, STRAIGHT CATH DONE, GOT OUT 550 ML. PT WITHOUT ANY REPORTS OF DISCOMFORT, ENCOURAGED TO DRINK PLENTY OF WATER.
--- NOTE | 2019-07-30 18:39 | NUR ---
PT HAD URNIANRY RETENTION, DR CAAL PAGED, ORDER RECEIVED TO PUT A FOELY IN, MERRILL WAS PLACED. TEA COLORED URINE NOTICED, ORDER RECEIVED FOR UA AND CULTURE, SAMPLE SENT DOWN TO THE LAB.
[2019-07-30 19:38] LABS: URINE BILIRUBIN 2+ (Negative); URINE BLOOD 3+ (Negative); URINE CLARITY CLOUDY; URINE COLOR BROWN; URINE GLUCOSE-RANDOM* NEGATIVE (Negative); URINE KETONES TRACE (Negative); URINE NITRITE-REFLEX NEGATIVE (Negative); URINE PROTEIN (DIPSTICK) 2+ (Negative); URINE SPECIFIC GRAVITY 1.025 (1.005-1.035)
[2019-07-30 19:44] LABS: ICTOTEST (BILI CONFIRMATORY) Positive (Negative); URINE LEUKOCYTES-REFLEX 3+ (Negative)
[2019-07-30 20:03] LABS: CASTS None Seen /LPF (None Seen); MUCUS 0-3 Light strn/LPF (None Seen); SQUAMOUS 0-3 Few /LPF (0-3); URINE WBC-REFLEX >25 Many /HPF (0-5); WBC CLUMPS Moderate (None Seen)
[2019-07-30 20:04] LABS: AMORPHOUS URATES Moderate /LPF (None Seen); BACTERIA-REFLEX None Seen /HPF (None Seen); CRYSTALS None Seen /LPF (None Seen); URINE RBC >20 Many /HPF (0-2); YEAST-REFLEX Present (None Seen)
[2019-07-30 20:12] VITALS: BP 117/73
--- NOTE | 2019-07-31 00:32 | NUR ---
ASSUMED CARE FROM DAY SHIFT PT VERY AGITATED RESTLESS ATTEMPTING TO THROW LEGS OVMarlene SALMERON , DR CAAL NOTIFED ORFER RECIEVED FRO PO HALDOL MEDICATION TAKEN ALONG WITH SLEEPING PILL. AFTER SEVERAL HOURS PT REMAINS RESTLESS YELLING OUT AND CONTINUE TO ATTEMPT TO PULL SELF OUT OF BED. PT WACTHED VERY CLOSELY FOR SAFETY , BED ALARM ON . WILL CONTINUE TO MONITOR CLOSELY.
--- NOTE | 2019-07-31 05:57 | NUR ---
PT HAVE BEEN AWAKE CONFUSED THE ENTIRE NIGHT, ATTEMPTING TO CLIMB OUT OF BED , SAT 92 % ON JOHN, AIR 02 APPLIED BUT PT TAKES OFF.PT YELLING AND CONTINUE TO PULL OFF COVERS EXPOSING HIMSELF.
[2019-07-31 08:00] VITALS: BP 91/51
--- NOTE | 2019-07-31 08:24 | NUR ---
ASSUME PT CARE AT 0700. VS 91/51 HR 80. THIS AM. MERRILL CATH HAS SOME VERY DARK COLOR. PT HAD UTI AND HAVE BEEN TREATED WITH LEVAQUIN. C&S RESULT LAST UA NOTIFIED DR. CAAL. AND ANOTHER UA STILL WAIT FOR C&S. REPORTS TO DOCTOR AFUA THAT PT STILL HAS PROBLEM WITH SLEEPING, POOR APPETITE AND DEPRESSION. OBTAINED ORDER FOR REMERON 15MG AT HS AND FLUID RUN AT 10OML/HR SINCE PT DOESN'T DRINK MUCH. LOW B/P. OFFERED SUPPORTIVE CARE. ASSISTED PT TO DINNING ROOM FOR BREAKFAST, BUT PT COULDN'T HARDLY AWAKE. ASSISTED PT TO BED AND WILL CONTINUE TO MONITOR UTI AND AFFECTIVENESS OF MEDICATIONS FOR TREATMENT AND SLEEPING AT HS.
--- NOTE | 2019-07-31 10:00 | NUR ---
cm notified that pt dc on hold rt medical and physical changes. cm visited with private child day care center worker iris who stated " waiting to speak with nurse and if he needs any lift assistance at home his son will need to set up the care for that. [facility] doesnt not go lift assistance and why have del rio?"/iris. bedside nurse to visit with iris rt question on del rio cath. will cont following as needed for dc needs.
[2019-07-31 15:06] LABS: ABSOLUTE NEUTROPHILS 6.7 thou/uL (1.4-8.2); BASOPHILS 0.2 % (0.0-2.0); EOSINOPHILS 0.2 % (0.0-3.0); HEMOGLOBIN 14.7 gm/dL (14.0-18.0); LYMPHOCYTES 9.6 % (24.0-44.0); MCH 30.2 pg (26.0-34.0); MCHC 32.8 g/dL (28.0-37.0); MCV 92.3 fL (80.0-100.0); MONOCYTES 10.8 % (1.0-8.0); PLATELET COUNT 219 thou/uL (150-400); POLYS 79.2 % (36.0-66.0); RBC 4.87 mil/uL (4.50-6.00); RDW 15.3 % (10.5-14.5); WBC 8.5 thou/uL (4.0-11.0)
[2019-07-31 15:21] LABS: ALBUMIN 2.8 g/dL (3.4-5.0); CALCIUM 8.8 mg/dL (8.5-10.1); CREATININE 1.1 mg/dL (0.7-1.3); POTASSIUM 4.8 mmol/L (3.5-5.1); TOTAL BILIRUBIN 1.1 mg/dL (<0.1-1.0)
[2019-07-31 19:44] VITALS: BP 100/71
--- NOTE | 2019-08-01 05:08 | NUR ---
ASSUMED CARE OF PT AT 1900. A&Ox4, PLEASANT. VS STABLE. BP WAS 100/71, NS INFUSED AT 100mL/HR OVER NOC, TOLERATED WELL. PT REFUSED MIRTAZAPINE DESPITE EDUCATION AND ENCOURAGEMENT. PT WAS AFRAID IT WAS IN THE SAME CLASS HALIDOL OR OTHER MEDS WITH STRONG ADVERSE EFFECTS. STATED HE WILL DISCUSS WITH HIS DR. PT WAS ABLE TO SLEEP OVER NOC WITHOUT CONFUSION OR IMPULSIVE BEHAVIOR OF PREVIOUS NOCS UNTIL HE WAS AWOKEN FOR SCHEDULED HEPARIN SHOT AT 0345. CURRENTLY TRYING TO GO BACK TO SLEEP. SWALLOW PRECAUTIONS FOLLOWED, NO ASPIRATION NOTED THIS SHIFT. PROGRESSING TOWARDS POC GOALS.
[2019-08-01 06:43] LABS: CALCIUM 8.9 mg/dL (8.5-10.1); CREATININE 1.1 mg/dL (0.7-1.3); POTASSIUM 4.4 mmol/L (3.5-5.1)
[2019-08-01 08:47] VITALS: BP 117/73
--- NOTE | 2019-08-01 11:35 | NUR ---
ASSUME PT CARE AT 0700. REPORTS PT HAD ADEQUATE SLEEP LAST NIGHT REFUSED REMERON. MERRILL CATH HAS SOME VERY DARK COLOR. NO ABT AT THIS MOMENT. STILL WAITING FOR C&S. CONTINUE TO BE ON FLUID 100ML/HR. SINCE PT DOESN'T DRINK MUCH AND ON ASPIRATION PRECAUTION FOR SLEEP ON AND OFF DURING DAY. OFFERED SUPPORTIVE CARE. ASSISTED PT TO DINNING ROOM FOR BREAKFAST, BUT PT COULDN'T HARDLY AWAKE. STILL HAS SOME ABNORMAL MOVEMENT AND IRRATIONAL THOUGHT AT TIME MAY BE RESIDUAL FROM HALDOL. XANAX AND HADOL ADDED TO ADVERSE REACTIONS. FALL PRECAUTION IN PLACE. CALL LIGHT WITHIN REACH. WILL CONTINUE TO MONITOR AND FOLLOW UP WITH DISCHARGE PLAN.
--- NOTE | 2019-08-01 12:32 | NUR ---
team meeting, recommendation: pt cont to have up and down states physical and medical. pt needs pcg who can assist with mobility lift when having diff moving or rent sit to stand lift?, still needing c & s for ua. [facility] ( pt, ot,st nursing, vital stim, and sw). pcg with son assistance at night. pcg need to work with st on meals and swallowing.
--- NOTE | 2019-08-01 14:54 | NUR ---
Public Health Officer sent SNF referral to [facility]. DP notified admissions dept. that new referral was sent on patient.
[2019-08-01 19:34] VITALS: BP 113/65
--- NOTE | 2019-08-01 22:43 | NUR ---
ASSUMED CARE OF THE PT AT 1914 PM. ALERT ET ORIENTED X 1-2. THE PT IS A RETIRED PHARMCIST. HE REFUSED TO TAKE HIS REMERON THIS EVENING, BUT TOOK THE REST OF HIS MEDICATION. MAKES NEEDS KNOWN. HAS AN IV TO THE RIGHT ARM WITH IV FLUIDS INFUSING. HAS A MERRILL WITH DARK SAGRARIO URINE TO DEPENDENT DRAINAGE. DENIES PAIN AT THIS TIME.
--- NOTE | 2019-08-02 01:17 | NUR ---
THE PT HAS BEEN WHEEZING TONIGHT, CHECKED HIS O2 SAT AND IT WAS 91% ON ROOM AIR. APPLIED THE PT'S OXYGEN ON AT 2L PER NASAL CANNULA. CALLED THE PHYSICIAN WHO WAS [employer] CONSULTANT FOR THE PT, HE ORDERED FOR THE PT'S IV FLUIDS TO BE DISCONTIMUED AND FOR THE PT TO GET A CHEST XRAY IN THE MORNING, DUE TO THE PT COUGHING. CALL LIGHT WITHIN REACH.
--- NOTE | 2019-08-02 06:40 | NUR ---
THE PT WAS AWAKE MOST OF THE NIGHT, RESP., EVEN, AND UNLABORED. REMAINS ON 2L PER NASAL CANNULA. DENIES PAIN AT THIS TIME.
[2019-08-02 08:00] VITALS: BP 93/58
[2019-08-02 10:00] VITALS: BP 104/56
--- NOTE | 2019-08-02 10:04 | NUR ---
DISCHARGE PLANNING. FOLLOW UP CALL MADE TO RAFAEL VILLAVICENCIO OF OP ADMISSIONS, REGARDING PATIENT REFERRAL FAXED TO HER YESTERDAY. PER MAGUI VILLAVICENCIO, ADMISSIONS LIAISON, WILL BE BY THIS AFTERNOON TO DAY A BEDSIDE EVALUATION. FOLLOWING.
--- NOTE | 2019-08-02 10:40 | NUR ---
ASSUMED CARES AT 0700. PT SLEEPY AND LETHARGIC, ORIENTED*4 BUT FORGETFUL. DENIES PAIN. STATED THAT HE FELT TIRED AND SLEEPY, VITALS REMAIN STABLE. SATS >95% ON 2L OXYGEN, DESATS NOTED ON RA BUT PT RECOVERS FAST. MERRILL REMAINS INTACT AND PATENT. URINE IS TEA-COLORED, NO FOUL ODOR. PT ENCOURAGED AND ASSISTED WITH FLUID INTAKE. PT UP WITH 1 MIN-MOD ASSIST, GB AND WALKER AND TOLERATED WELL. Q1H VISUAL CHECKS. CALL LIGHT WITHIN REACH. FALL PRECAUTIONS IN PLACE.
[2019-08-02 14:19] VITALS: BP 112/71
--- NOTE | 2019-08-02 14:43 | NUR ---
Patient participated in community reintegration on 08/02/19 with Physical Therapy. Refer to documentation by PT.
[2019-08-02 20:07] VITALS: BP 106/70
--- NOTE | 2019-08-03 02:33 | NUR ---
PATIENT ASSESSED AND IS ALERT X 3-4. SKIN WARM AND DRY. WAS SITTING UP IN CHAIR AT SHIFT CHANGE. HAS SOME WEAKNESS NOTED ON ADL'S. TAKEN 2 PERSDON ASSIST TO GET UP FOR BED. PLACED ON BSC WITH NO BM. HAS A MERRILL WITH YELLOW IN COLOR. IS VERY CONFUSED AND FORGETFUL. HAS PROBLEMS WITH ASP PNEUMONIA. HOB ELEVATED TO 90 % ALL THE TIME AFTER MEDS FOR ABOUT AN HOUR. IS MOD TO MAX ASSIST OF 1-2, WITH GAIT BELT AND WALKER. HAS A POOR APPETITE. ASKED FOR ICE CREAM BUT THEN SPILLED IT BECAUSE HE SAID IT DID NOT TASTE GOOD. IS VERY IMPULSIVE, TURNED Q 2 HOURS BUT FEFUSED TO TURN SOME AT 0200. REFUSED HIS SLEEPING PILL BUT DID GET HIM TO TAKE REMERON, HE WAS TRYING TO GET OUT OF BED, THROWING HIS LEGS OVER RAILS AND SAYING "GET ME UP". GOING TO [facility] ON WEDNESDAY. MEDS CRUSHED AND PLACED IN APPLESAUSE AND YOGART. TAKES NECTAR THICKEN WATER AT TIMES, rN TRIED TO INCREASE HIS INTAKE. BED ALARM AND BED ALARM ON. REMAINS VERY IMPULSIVE AT TIMES THROUGHOUT THE NIGHT. REMAINS A FALL RISK. CONT PLAN OF CARE. AND CLOSE MONITORING.
--- NOTE | 2019-08-03 10:52 | NUR ---
ASSUMED CARE AT 0700. PATIENT ALERT AND ORIENTED X2. PATIENT MENDEZ'S. SALES REPRESENTATIVE EDUCATION COURSES ARE EQUAL. LUNGS ARE COARSE AND DEMINISHED IN THE LOWER BASES. ABD IS SOFT WITH BSX4. PATIENT IS UP IN W/C AND OUT TO THE DINING ROOM FOR MEALS WITH S.T. FALL AND SAFETY PROTOCOLS IN PLACE. DENIES PAIN AT THIS TIME. PT VERY SLEEPY TODAY. WILL MONITER COMPLIANCE. WILL CONTINUE TO MONITER.
[2019-08-03] MEDS ORDERED: PACERONE 200 M200 M1 PO (12:42)
--- NOTE | 2019-08-03 13:15 | NUR ---
pt up in dinning room, with iris canseco and visiting. plan to dc to [facility] tomorrow. chart copy requested. bedside nurse to call report to boni of op [phone] at dc.
[2019-08-03 19:34] VITALS: BP 91/56
--- NOTE | 2019-08-04 04:29 | NUR ---
ASSESSMENT: PT REMAIN ALERT AND ORIENT TIMES THREE. UP IN WC AT THE BEGINNING OF THE SHIFT. TRANSFERRED TO BED PER REQUEST. VSS, AFEBRILE. POSSIBLE DC TO [facility] TODAY. DENIES PAIN, SOB AND N/V. POOR PROGRESS TOWARDS DC GOALS. WILL CONTINUE TO MONITOR.
[2019-08-04 09:05] VITALS: BP 113/68
[2019-08-04 09:06] VITALS: BP 113/68
--- NOTE | 2019-08-04 11:48 | NUR ---
ASSUMED CARES AT 0700. PT ALERT AND ORIENTED*4, FORGETFUL AND CONFUSED AT TIMES. DENIES PAIN. VITALS REMAIN STABLE. MERRILL DC'D PER ORDER SINCE PT IS DISCHARGING TODAY, 0.5CC OF BLOOD NOTED AT THE TIP OF MERRILL. PT HASN'D VOIDED SINCE, WILL CONTINUE TO MONITOR. PIV RIGHT FOREARM DC'D. CONTINUES TO HAVE MILD BLE EDEMA, EXTREMITIES ELEVATED. SACRAL WOUND HEALED. PT UP WITH 1 MIN ASSIST, GB AND WALKER. REPORT TO BE CALLED IN TO [facility] UPON DISCHARGE. Q1H VISUAL CHECKS. CALL LIGHT WITHIN REACH. FALL PRECAUTIONS IN PLACE
== END 2019-08-04 16:59 | DRG 91 ==
PROVIDERS: Family Medicine; Internal Medicine Pulmonary Disease; Nurse Practitioner Family; ADMIT Physical Medicine & Rehabilitation
DX: G14 Postpolio syndrome (principal); J69.0 Pneumonitis due to inhalation of food and vomit; I47.1 Supraventricular tachycardia; N39.0 Urinary tract infection, site not specified; K56.7 Ileus, unspecified; I25.10 Atherosclerotic heart disease of native coronary artery without angina pectoris; I10 Essential (primary) hypertension; E78.5 Hyperlipidemia, unspecified; I35.0 Nonrheumatic aortic (valve) stenosis; I25.5 Ischemic cardiomyopathy; K21.9 Gastro-esophageal reflux disease without esophagitis; E78.00 Pure hypercholesterolemia, unspecified; E03.9 Hypothyroidism, unspecified; M19.90 Unspecified osteoarthritis, unspecified site; F32.9 Major depressive disorder, single episode, unspecified; Z60.2 Problems related to living alone; R53.81 Other malaise; I95.9 Hypotension, unspecified; F03.90 Unspecified dementia, unspecified severity, without behavioral disturbance, psychotic disturbance, mood disturbance, and anxiety; Z95.1 Presence of aortocoronary bypass graft; Z95.5 Presence of coronary angioplasty implant and graft; Z90.49 Acquired absence of other specified parts of digestive tract; Z87.891 Personal history of nicotine dependence; Z82.49 Family history of ischemic heart disease and other diseases of the circulatory system
CPT/HCPCS: 10112

== ENCOUNTER 2019-08-13 05:40 | Emergency (ER) | payer OTHER, MEDICARE ==
[~2019-08-13] VITALS: Ht 182.9 cm; Wt 78.9 kg
--- NOTE | ~2019-08-13 | EMS ---
[address] [address] EMS Patient Care Report Name: ROMAN REYNOLDS Room #: REG ISAI Jackson#: [id number] Admission: 08/13/19 Attend Phys: Discharge: Date of : 34 Report #: [id number] THIS REPORT FOR: //name// Report Transmitted: 08/13/2019 05:04 EMS Care Summary [facility] MED-ACT Incident [id number] @ 08/13/2019 05:09 Incident Location [address] [place] [address] Patient ROMAN REYNOLDS Male, 89 Years 1930 Patient Address [address] [place] [address] Patient History Hypertension, Patient Allergies Haldol, Patient Medications Other, Chief Complaint "I went flying." Disposition Transported No Lights/[place] Dispatch Reason Falls Transported To [facility] Narrative Upon arrival to scene we find pt lying on the floor showing no outward signs of distress with no obvious ABC deficits. Pt reports that he was seated on the [facility] [address] [place] [address] EMS Patient Care Report Name: ROMAN REYONLDS Room #: REG Renetta#: [id number] Admission: 08/13/19 Attend Phys: Discharge: Date of : 32 Report #: [id number] edge of his bed and reached for his wheelchair, causing him to lose his balance and fall forward. Pt denies loss of consciousness at any point and denies use of anti-coagulants. Pt is currently complaining of pain in his left knee on movement/palpation and around the area of a skin tear on his right wrist. Pt denies all further complaints at this time. Pt condition monitored throughout transport without change. [facility] notified via [employer] with information only. Pt transported to [facility] as base hospital. Pt taken to ER room 2 and assisted to bed via sheet drag. Full verbal report given to staff. Initial Vitals @05:26P: 73,R: 18,BP: 108/64,Pain: 2/10,GCS: 15,SpO2: 96,Revised Trauma: 12, @05:21P: 79,R: 18,BP: 108/64,Pain: 2/10,GCS: 15,SpO2: 99,Revised Trauma: 12, Assessments @05:17MENTAL:Person Oriented,Time Oriented,Place Oriented,Event Oriented,SKIN:HEENT:Head/Face: Other,LUNG SOUNDS:General: No Abnormalities,ABDOMEN:General: No Abnormalities,PELVIS//GI:EXTREMITIES:Left Leg: Other,Right Arm: Other,Left Arm: No Abnormalities,Right Leg: No Abnormalities,PULSE:Radial: 2+ Normal,NEURO:No Abnormalities, Impression Injury of Head Timeline 05:09,Call Received 05:09,Psap Call 05:09,Dispatched 05:11,En Route 05:14,On Scene 05:17,At Patient 05:21,BP: 108/64 M,PULSE: 79,RR: 18 R,SPO2: 99 Ox,ETCO2: ,BG: ,PAIN: 2,GCS: 15, 05:25,Depart Scene 05:26,BP: 108/64 M,PULSE: 73,RR: 18 R,SPO2: 96 Ox,ETCO2: ,BG: ,PAIN: 2,GCS: 15, 05:36,At Destination 05:55,Call Closed Disclaimer v1.1 Copyright 2019 [employer] This EMS Care Summary contains data elements from the applicable legal record (which may be displayed differently). It is designed to provide pertinent information for the following purposes: continuity of care, clinical quality, and state data reporting. The complete legal record is available to ED staff [address] [address] EMS Patient Care Report Name: ROMAN REYNOLDS Room #: REG ISAI Jackson#: [id number] Admission: 08/13/19 Attend Phys: Discharge: Date of : 34 Report #: [id number] and administrators of the receiving hospital in [employer]'s Patient Tracker. All data is provided "as is."
[~2019-08-13 05:40] MED LIST changes: +PACERONE 200 M200 M1 PO
[2019-08-13] MEDS ORDERED: FLOMAX0.4 MG PO (05:54)
[2019-08-13 06:35] LABS: ABSOLUTE NEUTROPHILS 3.8 thou/uL (1.4-8.2); EOSINOPHILS 3.5 % (0.0-3.0); HEMATOCRIT 44.3 % (42.0-52.0); HEMOGLOBIN 14.7 gm/dL (14.0-18.0); LYMPHOCYTES 20.4 % (24.0-44.0); MCH 30.4 pg (26.0-34.0); MCHC 33.2 g/dL (28.0-37.0); MCV 91.6 fL (80.0-100.0); MONOCYTES 8.6 % (1.0-8.0); PLATELET COUNT 195 thou/uL (150-400); POLYS 66.5 % (36.0-66.0); RBC 4.84 mil/uL (4.50-6.00); RDW 15.1 % (10.5-14.5); WBC 5.8 thou/uL (4.0-11.0)
[2019-08-13 06:43] LABS: CALCIUM 8.5 mg/dL (8.5-10.1); CREATININE 1.3 mg/dL (0.7-1.3); POTASSIUM 4.4 mmol/L (3.5-5.1)
[2019-08-13 08:55] VITALS: BP 98/75
== END 2019-08-13 08:58 | disposition home or self-care (01) ==
LOC: ER 05:40
PROVIDERS: Emergency Medicine
DX: S61.411A Laceration without foreign body of right hand, initial encounter (principal); K21.9 Gastro-esophageal reflux disease without esophagitis; E78.00 Pure hypercholesterolemia, unspecified; E03.9 Hypothyroidism, unspecified; M19.90 Unspecified osteoarthritis, unspecified site; Z90.49 Acquired absence of other specified parts of digestive tract; Z95.5 Presence of coronary angioplasty implant and graft; Z88.8 Allergy status to other drugs, medicaments and biological substances; W06.XXXA Fall from bed, initial encounter; Y93.89 Activity, other specified; Y92.89 Other specified places as the place of occurrence of the external cause; Y99.8 Other external cause status